=== PATIENT | male | born 1940 | race Caucasian/White ===

== ENCOUNTER 2018-02-22 14:58 | Inpatient (IN) | payer MEDICARE, BC ==
[2018-02-22] MEDS ORDERED: SODIUM CHLORIDE 0.9% 1,000 ML IV STA (15:25)
[2018-02-22 16:06] LABS: Anisocytosis Slight; Basophils # (A) 0.1 k/uL (0-0.2); Basophils % (A) 0 %; Eosinophils # (A) 0.1 k/uL (0-0.7); Eosinophils % (A) 1 %; HCT 32.4 % (39.0-53.0); HGB 10.8 gm/dL (13.0-17.5); Lymphocytes # (A) 1.2 k/uL (1.0-4.8); Lymphocytes % (A) 9 %; MCH 33.3 pg (25.0-35.0); MCHC 33.5 g/dL (31.0-37.0); MCV 99.4 fL (80.0-100.0); Macrocytosis Slight; Mean Platelet Volume 7.6; Monocytes # (A) 0.8 k/uL (0-1.0); Monocytes % (A) 7 %; Neutrophils # (A) 9.9 k/uL (1.3-7.7); Neutrophils % (A) 80 %; Platelet Count 501 k/uL (150-450); RBC 3.26 m/uL (4.30-5.90); RDW 17.1 % (11.5-15.5); WBC 12.3 k/uL (3.8-10.6)
--- NOTE | 2018-02-22 16:13 | ED ---
General Adult HPI - General Chief complaint: Wound/Laceration Stated complaint: foot infection Time Seen by Provider: 02/22/18 15:13 Source: patient, RN notes reviewed Mode of arrival: wheelchair Limitations: no limitations - History of Present Illness Initial comments: Patient 77-year-old male presents emergency room today with a chief complaint of increased infection to the left great toe. Patient does admit that symptoms started approximately 3 months ago. He does admit that he had an ingrown cocktail toenail. Patient states that he was seen by the family doctor started on antibiotics recently. States his clindamycin. Patient does admit that he was trying to pull out a piece of the toenail yesterday and believes that it is somewhat worse. He states that has opened up more. Does admit that he does not experience any pain locally to the area. He denies any other complaints or symptoms. Patient denies any recent fever, chills, shortness of breath, chest pain, back pain, abdominal pain, nausea or vomiting, headaches or visual changes , or any other complaints. - Related Data Home Medications Medication Instructions Recorded Confirmed Aspirin EC [Ecotrin] 81 mg PO DAILY 08/14/15 02/22/18 Atorvastatin Calcium [Lipitor] 10 mg PO HS 08/14/15 02/22/18 Carvedilol [Coreg] 3.125 mg PO BID 08/14/15 02/22/18 Clopidogrel [Plavix] 75 mg PO DAILY 08/14/15 02/22/18 Gabapentin [Neurontin] 300 mg PO TID 08/14/15 02/22/18 Ibuprofen [Motrin] 800 mg PO Q8H PRN 08/14/15 02/22/18 Isosorbide Mononitrate ER [Imdur] 30 mg PO DAILY 08/14/15 02/22/18 Nitroglycerin Sl Tabs [Nitrostat] 0.4 mg SUBLINGUAL Q5M PRN 08/14/15 02/22/18 HYDROcodone/APAP 10-325MG [[place] 1 tab PO TID PRN 02/22/18 02/22/18 10-325] Mirtazapine [Remeron (Soluspan)] 30 mg PO HS 02/22/18 02/22/18 Nystatin 100,000Unit/gm Cream 1 applic TOPICAL BID PRN 02/22/18 02/22/18 [Mycostatin Cream] Sulfamethox-Tmp 800-160Mg [Bactrim 1 tab PO BID 02/22/18 02/22/18 DS 800-160 mg] Tolterodine ER [Detrol LA] 4 mg PO BID 02/22/18 02/22/18 Umeclidinium Brm/Vilanterol Tr 1 puff INHALATION RT-DAILY 02/22/18 02/22/18 [Anoro Ellipta 62.5-25 Mcg INH] Allergies Allergy/AdvReac Type Severity Reaction Status Date / Time Penicillins Allergy Unknown Verified 02/22/18 15:23 Artificial Cinnamon Allergy Unknown Uncoded 02/22/18 15:09 Review of Systems ROS Statement: Those systems with pertinent positive or pertinent negative responses have been documented in the HPI. ROS Other: All systems not noted in ROS Statement are negative. Past Medical History Past Medical History: Coronary Artery Disease (CAD), COPD, CVA/TIA, Hyperlipidemia, Hypertension, Myocardial Infarction ([place]) Additional Past Medical History / Comment(s): MITRAL VALVE PROLAPSE, SPINAL STENOSIS History of Any Multi-Drug Resistant Organisms: MRSA Date of last positivie culture/infection: 2017 MDRO Source:: BACK Past Surgical History: Coronary Bypass/CABG, Heart Catheterization With Stent Additional Past Surgical History / Comment(s): CAROTID ENDARTERECTOMY, DOUBLE BYPASS, LAMINECTOMY. 5 STENTS, CEVERVICAL LAMINECTOMY Past Psychological History: No Psychological Hx Reported Smoking Status: Current every day smoker Past Alcohol Use History: Occasional Past Drug Use History: None Reported General Exam - General Exam Comments Initial Comments: General: The patient is awake and alert, in no distress, and does not appear acutely ill. Eye: There is normal conjunctiva bilaterally. No signs of icterus. Ears, nose, mouth and throat: There are moist mucous membranes and no oral lesions. Neck: The neck is supple. Cardiovascular: There is a regular rate and rhythm. No murmur, rub or gallop is appreciated. Respiratory: Lungs are clear to auscultation, respirations are non-labored, breath sounds are equal. No wheezes, stridor, rales, or rhonchi. Musculoskeletal: Normal ROM, no tenderness. Sensation intact. Strength 5/5. Pulses equal bilaterally 2+. Neurological: A&O x 3. CN II-XII intact, There are no obvious motor or sensory deficits. Coordination appears grossly intact. Speech is normal. Skin: Patient does have increased redness erythema there is lethargic streaking up the right foot just past the right ankle. There is a black dark spot at the tip of the left great toe. There is open to the lateral wound. No drainage. Psychiatric: Cooperative, appropriate mood & affect, normal judgment. Limitations: no limitations Course Vital Signs 02/22/18 15:04 Temperature 98.2 F Pulse Rate 73 Respiratory 18 Rate Blood Pressure 145/82 O2 Sat by Pulse 93 L Oximetry Medical Decision Making - Medical Decision Making Patient's labs reviewed and showed 12,000 white count. Patient's x-ray does show evidence for possible osteomyelitis of the first digit of the left foot. Patient be admitted. He started on Rocephin and vancomycin here in the emergency room. - Lab Data Result diagrams: 02/22/18 15:49 02/22/18 15:49 Lab Results 02/22/18 02/22/18 02/22/18 Range/Units 15:49 15:49 15:49 WBC 12.3 H (3.8-10.6) k/uL RBC 3.26 L (4.30-5.90) m/uL Hgb 10.8 L (13.0-17.5) gm/dL Hct 32.4 L (39.0-53.0) % MCV 99.4 (80.0-100.0) fL MCH 33.3 (25.0-35.0) pg MCHC 33.5 (31.0-37.0) g/dL RDW 17.1 H (11.5-15.5) % Plt Count 501 H (150-450) k/uL Neutrophils % 80 % Lymphocytes % 9 % Monocytes % 7 % Eosinophils % 1 % Basophils % 0 % Neutrophils # 9.9 H (1.3-7.7) k/uL Lymphocytes # 1.2 (1.0-4.8) k/uL Monocytes # 0.8 (0-1.0) k/uL Eosinophils # 0.1 (0-0.7) k/uL Basophils # 0.1 (0-0.2) k/uL Anisocytosis Slight Macrocytosis Slight PT (9.0-12.0) sec INR (<1.2) APTT (22.0-30.0) sec Sodium 137 (137-145) mmol/L Potassium 4.3 (3.5-5.1) mmol/L Chloride 104 (98-107) mmol/L Carbon Dioxide 23 (22-30) mmol/L Anion Gap 10 mmol/L BUN 21 H (9-20) mg/dL Creatinine 1.37 H (0.66-1.25) mg/dL Est GFR (CKD-EPI)AfAm 56 (>60 ml/min/1.73 sqM) Est GFR (CKD-EPI)NonAf 49 (>60 ml/min/1.73 sqM) Glucose 104 H (74-99) mg/dL Plasma Lactic Acid Fidel 1.2 (0.7-2.0) mmol/L Calcium 9.2 (8.4-10.2) mg/dL Total Bilirubin 0.6 (0.2-1.3) mg/dL AST 20 (17-59) U/L ALT 22 (21-72) U/L Alkaline Phosphatase 67 (38-126) U/L Total Protein 7.1 (6.3-8.2) g/dL Albumin 3.4 L (3.5-5.0) g/dL 02/22/18 Range/Units 15:49 WBC (3.8-10.6) k/uL RBC (4.30-5.90) m/uL Hgb (13.0-17.5) gm/dL Hct (39.0-53.0) % MCV (80.0-100.0) fL MCH (25.0-35.0) pg MCHC (31.0-37.0) g/dL RDW (11.5-15.5) % Plt Count (150-450) k/uL Neutrophils % % Lymphocytes % % Monocytes % % Eosinophils % % Basophils % % Neutrophils # (1.3-7.7) k/uL Lymphocytes # (1.0-4.8) k/uL Monocytes # (0-1.0) k/uL Eosinophils # (0-0.7) k/uL Basophils # (0-0.2) k/uL Anisocytosis Macrocytosis PT 11.3 (9.0-12.0) sec INR 1.2 H (<1.2) APTT 27.2 (22.0-30.0) sec Sodium (137-145) mmol/L Potassium (3.5-5.1) mmol/L Chloride (98-107) mmol/L Carbon Dioxide (22-30) mmol/L Anion Gap mmol/L BUN (9-20) mg/dL Creatinine (0.66-1.25) mg/dL Est GFR (CKD-EPI)AfAm (>60 ml/min/1.73 sqM) Est GFR (CKD-EPI)NonAf (>60 ml/min/1.73 sqM) Glucose (74-99) mg/dL Plasma Lactic Acid Fidel (0.7-2.0) mmol/L Calcium (8.4-10.2) mg/dL Total Bilirubin (0.2-1.3) mg/dL AST (17-59) U/L ALT (21-72) U/L Alkaline Phosphatase (38-126) U/L Total Protein (6.3-8.2) g/dL Albumin (3.5-5.0) g/dL Disposition Clinical Impression: Osteomyelitis, Cellulitis Disposition: ADMITTED IP TO THIS HOSP Condition: Good Is patient prescribed a controlled substance at d/c from ED?: No Referrals: Bhupinder Blankenship DO [Primary Care Provider] - 1-2 days Time of Disposition: 16:31
[2018-02-22 16:18] LABS: Albumin 3.4 g/dL (3.5-5.0); Calcium 9.2 mg/dL (8.4-10.2); Potassium 4.3 mmol/L (3.5-5.1); Total Bilirubin 0.6 mg/dL (0.2-1.3); Total Protein 7.1 g/dL (6.3-8.2)
[2018-02-22 16:19] LABS: INR 1.2 (<1.2); Partial Thromboplastin Time 27.2 sec (22.0-30.0); Prothrombin Time 11.3 sec (9.0-12.0)
--- NOTE | 2018-02-22 16:23 | XR ---
EXAMINATION TYPE: XR foot complete LT DATE OF EXAM: 02/22/2018 CLINICAL HISTORY: Chronic nonhealing wound of the left great toe. TECHNIQUE: Frontal, lateral, and oblique images of the left foot are obtained. COMPARISON: None FINDINGS: There is progressive osteolysis of the distal phalanx of the left first digit with extent i nto the metatarsophalangeal joint space and new osteolysis of the distal second digit phalanx. Puncta te sclerotic focus medial to the midshaft of the first metatarsal could relate to sequela prior traum a. Degenerative changes of the first metatarsophalangeal joint and distal interphalangeal joints are mild. No acute fracture or dislocation. Small plantar enthesophytes. Small vessel atherosclerosis of the posterior tibial artery and dorsalis pedis artery. IMPRESSION: Progressive osteolysis of the distal phalanx of the left first digit with extent into the joint space in the ostial lysis of the distal phalanx of the second digit concerning for sequela of osteomyelitis. Three-phase bone scan could be performed for further evaluation.
[2018-02-22] MEDS ORDERED: cefTRIAXone 2,000 MG in SODIUM CHLORIDE 0.9% 100 ML IVPB STA (16:29)
[2018-02-22] MEDS ORDERED: VANCOMYCIN IV PER PHARMACY 1 EACH MISC MISCELLANE PRN (16:30)
[2018-02-22] MEDS ORDERED: NALOXONE 0.4 MG/ML 1 ML VIAL IV PRN (16:32)
[2018-02-22] MEDS ORDERED: SODIUM CHLORIDE 0.9% 1,000 ML IV ONE (16:32)
[2018-02-22] MEDS ORDERED: ONDANSETRON 4 MG/2 ML VIAL IVP PRN (16:32)
[2018-02-22] MEDS ORDERED: ACETAMINOPHEN TAB 325 MG TAB PO PRN (16:32)
[2018-02-22] MEDS ORDERED: VANCOMYCIN 1,500 MG in SODIUM CHLORIDE 0.9% 250 ML IVPB STA (16:39)
[2018-02-22 17:01] LABS: Appearance,Urine Clear (Clear); Bilirubin,Urine Negative (Negative); Blood,Urine Negative (Negative); Color,Urine Yellow; Glucose,Urine (UA) Negative (Negative); Ketones,Urine Negative (Negative); Leukocyte Esterase,Urine Negative (Negative); Nitrite,Urine Negative (Negative); PH, Urine 6.5 (5.0-8.0); Protein,Urine Negative (Negative); Specific Gravity,Urine 1.006 (1.001-1.035); Urobilinogen,Urine <2.0 mg/dL (<2.0)
[2018-02-22] MEDS ORDERED: NITROGLYCERIN SL TABS 0.4 MG TAB SUBLINGUAL PRN (18:31)
[2018-02-22] MEDS ORDERED: IBUPROFEN 800 MG TAB PO PRN (18:31)
[2018-02-22] MEDS: GABAPENTIN 300 MG CAP PO SCH (22:02)
[2018-02-22] MEDS: OXYBUTYNIN 10 MG TAB.ER.24 PO SCH (22:03)
[2018-02-22] MEDS: ATORVASTATIN 10 MG TAB PO SCH (22:03)
[2018-02-22] MEDS: MIRTAZAPINE 30 MG PO SCH (22:06)
[2018-02-23] MEDS ORDERED: ALPRAZolam 0.25 MG TAB PO PRN (00:57)
[2018-02-23] MEDS ORDERED: TEMAZEPAM 15 MG CAP PO PRN (00:57)
[2018-02-23] MEDS: ceFAZolin IN SWFI 2 GM/20 ML SYRINGE IVP SCH ×3 (01:34→16:49)
[2018-02-23] MEDS ORDERED: VANCOMYCIN 1,500 MG in SODIUM CHLORIDE 0.9% 250 ML IVPB SCH (06:00)
[2018-02-23] MEDS: CARVEDILOL 3.125 MG TAB PO SCH ×2 (08:17→16:50)
[2018-02-23] MEDS: NICOTINE 14MG/24HR PATCH TRANSDERM SCH (08:17)
[2018-02-23] MEDS: PANTOPRAZOLE 40 MG TABLET PO SCH (08:17)
[2018-02-23] MEDS: ISOSORBIDE MONONITRATE ER 30 MG TAB.ER.24H PO SCH (08:17)
[2018-02-23] MEDS: OXYBUTYNIN 10 MG TAB.ER.24 PO SCH ×2 (08:17→21:02)
[2018-02-23] MEDS: GABAPENTIN 300 MG CAP PO SCH ×3 (08:17→21:02)
[2018-02-23] MEDS: HEPARIN SODIUM,PORCINE 5,000 UNIT/ML 1 ML VIAL SQ SCH ×2 (08:18→21:03)
[2018-02-23] MEDS: IPRATROPIUM 0.5 MG/2.5 ML NEBU INHALATION SCH ×4 (08:19→20:01)
[2018-02-23] MEDS: HYDROcodone/APAP 10-325MG 1 EACH TAB PO PRN ×2 (08:21→16:53)
[2018-02-23] MEDS ORDERED: cefTRIAXone 2,000 MG in SODIUM CHLORIDE 0.9% 100 ML IVPB SCH (09:00)
--- NOTE | 2018-02-23 09:36 | HP ---
HISTORY AND PHYSICAL DATE OF SERVICE: 02/22/2018 CHIEF COMPLAINTS: Left toe wound. HISTORY OF PRESENT ILLNESS: This is a 77-year-old gentleman with past medical history of CAD, COPD, CVA, TIA , hypertension, myocardial infarction being followed by Dr. colon carrying a callus on the left great toe and about 3 months ago patient had ingrown toenail also. The patient was started on antibiotic recently. Clindamycin collaterally improving the increased swelling and then patient came to [facility], admitted for further evaluation and treatment. There is no history of fever, rigors or chills. No history of headache, loss of consciousness. There is some infection in the third toe on the left foot, also. The evaluation of the foot x-ray showed possible proximal osteolysis and osteomyelitis. PAST MEDICAL HISTORY: History of CAD, COPD, CVA, TIA, hypertension, history of myocardial infarction, history of mitral valve prolapse, history of CAD, CABG and stent. MEDICATIONS: Home medications are: 1. Ellipta 1 puff daily. 2. Detrol LA 4 mg p.o. b.i.d. 3. Bactrim 1 p.o. b.i.d. 4. Mycostatin 1 application b.i.d. p.r.n. 5. Nitrostat 0.4 mg sublingual p.r.n. 7. Imdur 30 mg p.o. daily.. 8. Motrin 800 mg q.8 p.r.n. 9. [place] 10 mg t.i.d. p.r.n. 10.Neurontin 300 mg p.o. t.i.d. 11.Plavix 10 mg. 12.Coreg 3.125 mg p.o. b.i.d. 13.Lipitor 10 mg p.o. daily. 14.Ecotrin 81 mg p.o. daily. ALLERGIES: PENICILLIN, CINNAMON. FAMILY HISTORY: No history of heart disease or strokes. SOCIAL HISTORY: History of smoking. No alcohol intake. REVIEW OF SYSTEMS: ENT: No diminished vision. CARDIOVASCULAR SYSTEM: No angina. RESPIRATORY SYSTEM: No cough noted. GI: No nausea. : No dysuria. NERVOUS SYSTEM: As mentioned earlier. ALLERGY/IMMUNOLOGY: As mentioned earlier. HEMATOLOGY: No history of anemia. CONSTITUTIONAL: Negative. DERMATOLOGY: Negative. RHEUMATOLOGY: Negative. PSYCHIATRY: As mentioned earlier. MUSCULOSKELETAL: As mentioned earlier. ENDOCRINE: No history of diabetes hypothyroidism. CONSTITUTIONAL: As mentioned earlier. PHYSICAL EXAMINATION: Alert, oriented x3, blood pressure 130/62, respiration 18, temperature 98.1, pulse ox 94% on room air. HEENT: Conjunctivae normal, oral mucosa moist. Neck is no jugular venous distention. No lymph node enlargement. CARDIOVASCULAR SYSTEMS: S1, S2, muffled. RESPIRATORY: Breath sounds diminished at the bases, no rhonchi, no crackles. ABDOMEN: Soft, nontender. No mass palpable. LEGS: The left foot has significant pain and swelling of the left big toe present. The third toe infection also present, tender and pulses felt normally. NERVOUS SYSTEM: Higher functions as mentioned earlier. Moves all four limbs. No focal deficits. SKIN: No ulcer, rash, bleeding. LABS: WBC is 12.3, hemoglobin 10.8, creatinine 1.36. ASSESSMENT: 1. Left big toe infection with osteomyelitis with possible sepsis. 2. Increased WBC. 3. Anemia. 4. Increased creatinine with chronic kidney disease, stage III. 5. Chronic obstructive pulmonary disease. 6. Cerebrovascular accident, transient ischemic attack. 7. Hypertension. 8. Hyperlipidemia. 9. History of myocardial infarction. 10.History of coronary artery disease. 11.History of mitral valve prolapses. 12.History of spinal stenosis. 13.History of methicillin-resistant Staphylococcus aureus. 14.History of coronary artery disease, coronary artery bypass grafting with stent. 15.History of carotid endarterectomy. RECOMMENDATION: In this 77-year-old gentleman who presented with multiple complications medical issues, will monitor the patient closely. Continue with the current management and symptomatic treatment. Will initiate a broad-spectrum IV antibiotic, obtain cultures and will also obtain vascular infectious disease evaluation. Continue the rest of medications. Avoid nephrotoxic medications and guarded prognosis because of multiple complex medical issues. Further recommendations to follow. Also, obtain a Cardiology evaluation as well. Guarded prognosis. MMODL / IJN: [id number] / ZULY
[2018-02-23 10:16] LABS: Albumin 2.8 g/dL (3.5-5.0); Calcium 8.5 mg/dL (8.4-10.2); Potassium 4.8 mmol/L (3.5-5.1); Total Bilirubin 0.4 mg/dL (0.2-1.3); Total Protein 6.1 g/dL (6.3-8.2)
[2018-02-23 10:36] LABS: Anisocytosis Slight; Basophils # (A) 0.1 k/uL (0-0.2); Basophils % (A) 1 %; Eosinophils # (A) 0.4 k/uL (0-0.7); Eosinophils % (A) 5 %; HCT 32.4 % (39.0-53.0); HGB 10.4 gm/dL (13.0-17.5); Hypochromasia Slight; Lymphocytes # (A) 0.5 k/uL (1.0-4.8); Lymphocytes % (A) 6 %; Macrocytosis Moderate; Monocytes # (A) 0.6 k/uL (0-1.0); Monocytes % (A) 6 %; Neutrophils % (A) 81 %; Platelet Count 470 k/uL (150-450); RBC 3.14 m/uL (4.30-5.90); WBC 8.7 k/uL (3.8-10.6)
[2018-02-23 11:20] VITALS: BMI 26.4
--- NOTE | 2018-02-23 11:29 | P.CRDCN ---
History of Present Illness History of present illness: Mr. Watts is a pleasant 77-year-old male past medical history significant for coronary artery disease s/p stent [address] Yoo in [place] and 2-vessel bypass surgery, hypertension, dyslipidemia, mitral valve prolapse, CVA and daily nicotine dependence. We have been asked to see him in consultation secondary to history of CAD. He presented to the hospital with an infection of the left great toe that has been getting progressively worse over the past 3 months. He is receiving IV antibiotics and awaiting a infectious disease, vascular and orthopedic consultation. He is seen and examined resting comfortably in bed in no acute distress. He denies symptoms of chest pain, shortness of breath, dizziness or palpitations. 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 No EKG obtained for review. Current cardiac medications include Imdur 30 mg daily, Plavix 75 mg daily, carvedilol 3.125 mg twice a day, atorvastatin 10 mg daily and aspirin 81 mg daily. He also takes Detrol, Motrin, [place] and Neurontin. Laboratory data reviewed, WBC 12.3, hemoglobin 10.8, sodium 137, potassium 4.3, creatinine 1.37 , GFR 46. Review of Systems At the time of my exam: CONSTITUTIONAL: Denies fever. Denies chills. EYES: Denies blurred vision. Denies vision changes. Denies eye pain. EARS, NOSE, MOUTH & THROAT: Denies headache. Denies sore throat. Denies ear pain. CARDIOVASCULAR: Denies chest pain. Denies shortness of breath. Denies orthopnea. Denies PND. Denies palpitations. RESPIRATORY: Denies cough. GASTROINTESTINAL: Denies abdominal pain. Denies diarrhea. Denies constipation. Denies nausea. Denies vomiting. MUSCULOSKELETAL: Denies myalgias. INTEGUMENTARY: Denies pruitis. Denies rash. NEUROLOGIC: Denies numbness. Denies tingling. Denies weakness. PSYCHIATRIC: Denies anxiety. Denies depression. ENDOCRINE: Denies fatigue. Denies weight change. Denies polydipsia. Denies polyurina. GENITOURINARY: Denies burning, hematuria or urgency with micturation. HEMATOLOGIC: Denies history of anemia. Denies bleeding. Past Medical History Past Medical History: Coronary Artery Disease (CAD), COPD, CVA/TIA, Hyperlipidemia, Hypertension, Myocardial Infarction ([place]) Additional Past Medical History / Comment(s): MITRAL VALVE PROLAPSE, SPINAL STENOSIS History of Any Multi-Drug Resistant Organisms: MRSA Date of last positivie culture/infection: 2017 MDRO Source:: BACK Past Surgical History: Coronary Bypass/CABG, Heart Catheterization With Stent Additional Past Surgical History / Comment(s): CAROTID ENDARTERECTOMY, DOUBLE BYPASS, LAMINECTOMY. 5 STENTS, CEVERVICAL LAMINECTOMY Past Psychological History: No Psychological Hx Reported Smoking Status: Current every day smoker Past Alcohol Use History: Occasional Past Drug Use History: None Reported Medications and Allergies Home Medications Medication Instructions Recorded Confirmed Type Aspirin EC [Ecotrin] 81 mg PO DAILY 08/14/15 02/22/18 History Atorvastatin Calcium [Lipitor] 10 mg PO HS 08/14/15 02/22/18 History Carvedilol [Coreg] 3.125 mg PO BID 08/14/15 02/22/18 History Clopidogrel [Plavix] 75 mg PO DAILY 08/14/15 02/22/18 History Gabapentin [Neurontin] 300 mg PO TID 08/14/15 02/22/18 History Ibuprofen [Motrin] 800 mg PO Q8H PRN 08/14/15 02/22/18 History Isosorbide Mononitrate ER [Imdur] 30 mg PO DAILY 08/14/15 02/22/18 History Nitroglycerin Sl Tabs [Nitrostat] 0.4 mg SUBLINGUAL Q5M PRN 08/14/15 02/22/18 History HYDROcodone/APAP 10-325MG [[place] 1 tab PO TID PRN 02/22/18 02/22/18 History 10-325] Mirtazapine [Remeron (Soluspan)] 30 mg PO HS 02/22/18 02/22/18 History Nystatin 100,000Unit/gm Cream 1 applic TOPICAL BID PRN 02/22/18 02/22/18 History [Mycostatin Cream] Sulfamethox-Tmp 800-160Mg [Bactrim 1 tab PO BID 02/22/18 02/22/18 History DS 800-160 mg] Tolterodine ER [Detrol LA] 4 mg PO BID 02/22/18 02/22/18 History Umeclidinium Brm/Vilanterol Tr 1 puff INHALATION RT-DAILY 02/22/18 02/22/18 History [Anoro Ellipta 62.5-25 Mcg INH] Allergies Allergy/AdvReac Type Severity Reaction Status Date / Time Penicillins Allergy Unknown Verified 02/22/18 15:23 Artificial Cinnamon Allergy Unknown Uncoded 02/22/18 15:09 Physical Exam Vitals: Vital Signs Temp Pulse Pulse Resp BP BP Pulse Ox 02/23/18 08:33 84 02/23/18 08:22 86 02/23/18 07:00 98.6 F 89 18 119/64 96 02/22/18 23:00 98.1 F 90 18 136/62 95 02/22/18 17:40 98.2 F 86 16 144/72 94 L 02/22/18 17:02 80 18 114/58 96 02/22/18 15:04 98.2 F 73 18 145/82 93 L Intake and Output 02/22/18 02/23/18 02/23/18 22:59 06:59 14:59 Intake Total 250 200 Output Total 200 500 Balance 50 -300 Intake: Intake, IV Titration 250 Amount Vancomycin 1,500 mg In 250 Sodium Chloride 0.9% 250 ml @ 125 mls/hr IVPB ONCE STA Rx#:[id number] Oral 200 Output: Urine 200 500 Other: # Bowel Movements 0 0 Weight 90.718 kg Blood pressure 119/64 heart rate 89 afebrile maintaining oxygen saturation on room air GENERAL: This is a 77-year-old male in no apparent distress at the time of my examination. HEENT: Head is atraumatic, normocephalic. Pupils are equal, round. Sclerae anicteric. Conjunctivae are clear. Mucous membranes of the mouth are moist. Neck is supple. There is no jugular venous distention. No carotid bruit is heard. LUNGS: Clear to auscultation no wheezes, rales or rhonchi. No chest wall tenderness is noted on palpation or with deep breathing. HEART: Regular rate and rhythm without murmurs, rubs or gallops. S1 and S2 heard. ABDOMEN: Soft, nontender. Bowel sounds are heard. No organomegaly noted. EXTREMITIES: No evidence of peripheral edema and no calf tenderness noted. VASCULAR: Radial and dorsalis pedis pulses palpated, no evidence of clubbing. NEUROLOGIC: Patient is awake, alert and oriented x3. Results 02/23/18 09:40 10/12/18 09:40 Cardiac Enzymes 02/22/18 Range/Units 15:49 AST 20 (17-59) U/L Coagulation 02/22/18 Range/Units 15:49 PT 11.3 (9.0-12.0) sec APTT 27.2 (22.0-30.0) sec CBC 02/22/18 Range/Units 15:49 WBC 12.3 H (3.8-10.6) k/uL RBC 3.26 L (4.30-5.90) m/uL Hgb 10.8 L (13.0-17.5) gm/dL Hct 32.4 L (39.0-53.0) % Plt Count 501 H (150-450) k/uL Comprehensive Metabolic Panel 02/22/18 Range/Units 15:49 Sodium 137 (137-145) mmol/L Potassium 4.3 (3.5-5.1) mmol/L Chloride 104 (98-107) mmol/L Carbon Dioxide 23 (22-30) mmol/L BUN 21 H (9-20) mg/dL Creatinine 1.37 H (0.66-1.25) mg/dL Glucose 104 H (74-99) mg/dL Calcium 9.2 (8.4-10.2) mg/dL AST 20 (17-59) U/L ALT 22 (21-72) U/L Alkaline Phosphatase 67 (38-126) U/L Total Protein 7.1 (6.3-8.2) g/dL Albumin 3.4 L (3.5-5.0) g/dL Current Medications Generic Name Dose Route Start Last Admin Trade Name Freq PRN Reason Stop Dose Admin Acetaminophen 650 mg 02/22/18 16:32 Tylenol Tab PO Q6HR PRN Mild Pain or Fever > 100.5 Hydrocodone Bitart/Acetaminophen 1 each 02/22/18 18:31 02/23/18 08:21 [place] 10 PO 1 each TID PRN Administration MODERATE Pain Alprazolam 0.25 mg 02/23/18 00:57 Xanax PO TID PRN Anxiety Atorvastatin Calcium 10 mg 02/22/18 21:00 02/22/18 22:03 Lipitor PO 10 mg HS JARRETT Administration Carvedilol 3.125 mg 02/23/18 07:30 02/23/18 08:17 Coreg PO 3.125 mg BID-W/MEALS [facility] Administration Cefazolin Sodium 2 gm 02/23/18 00:45 02/23/18 08:16 Kefzol IVP 2 gm Q8HR [facility] Administration Gabapentin 300 mg 02/22/18 22:00 02/23/18 08:17 Neurontin PO 300 mg TID [facility] Administration Heparin Sodium (Porcine) 5,000 unit 02/23/18 09:00 02/23/18 08:18 Heparin SQ Not Given Q12HR [facility] Ibuprofen 800 mg 02/22/18 18:31 Motrin PO Q8H PRN MILD Pain Ipratropium [place] 0.5 mg 02/23/18 08:00 02/23/18 08:19 Atrovent Nebulized INHALATION 0.5 mg RT-QID [facility] Administration Isosorbide Mononitrate 30 mg 02/23/18 09:00 02/23/18 08:17 Imdur PO 30 mg DAILY [facility] Administration Morphine Sulfate 4 mg 02/22/18 16:32 Morphine Sulfate (Inj) IV Q4HR PRN Severe Pain Naloxone HCl 0.2 mg 02/22/18 16:32 Narcan IV Q2M PRN Opioid Reversal Nicotine 1 patch 02/23/18 09:00 02/23/18 08:17 Habitrol 14mg/24hr Patch TRANSDERM 1 patch DAILY [facility] Administration Nitroglycerin 0.4 mg 02/22/18 18:31 Nitrostat SUBLINGUAL Q5M PRN Chest Pain Non-Formulary Medication 30 mg 02/22/18 21:00 02/22/18 22:06 Mirtazapine [Remeron (Soluspan)] PO Not Given HS [facility] Nystatin 1 applic 02/23/18 00:56 Mycostatin Cream TOPICAL BID PRN Skin Irritation Ondansetron HCl 4 mg 02/22/18 16:32 Zofran IVP Q8HR PRN Nausea And Vomiting Oxybutynin Chloride 10 mg 02/22/18 21:00 02/23/18 08:17 Ditropan Xl PO 10 mg BID [facility] Administration Pantoprazole Sodium 40 mg 02/23/18 07:30 02/23/18 08:17 Protonix PO 40 mg [id number] [facility] Administration Temazepam 15 mg 02/23/18 00:57 Restoril PO HS PRN Insomnia Intake and Output 02/22/18 02/23/18 02/23/18 22:59 06:59 14:59 Intake Total 250 200 Output Total 200 500 Balance 50 -300 Intake: Intake, IV Titration 250 Amount Vancomycin 1,500 mg In 250 Sodium Chloride 0.9% 250 ml @ 125 mls/hr IVPB ONCE STA Rx#:[id number] Oral 200 Output: Urine 200 500 Other: # Bowel Movements 0 0 Weight 90.718 kg 02/22/18 15:49 02/22/18 15:49 Assessment and Plan Assessment: ASSESSMENT Left great toe infection Leukocytosis Chronic kidney disease Hypertension Dyslipidemia History of coronary artery disease s/p bypass grafting PLAN Obtain 2D echocardiogram and doppler study to assess cardiac structure and function. Continue imdur, carvedilol and atorvastatin. Aspirin and plavix can be held in case of debridement required. Resume as soon as possible. Ongoing medical management. We will follows as needed. Thank you kindly for this consultation. Nurse Practitioner note has been reviewed, I agree with a documented findings and plan of care. Patient was seen and examined.
--- NOTE | 2018-02-23 11:32 | ECHOF ---
Referral Reason:cad MEASUREMENTS -------- HEIGHT: 180.3 cm WEIGHT: 90.7 kg BP: RVIDd: 2.8 cm (< 3.3) IVSd: 0.8 cm (0.6 - 1.1) LVIDd: 5.6 cm (3.9 - 5.3) LVPWd: 1.1 cm (0.6 - 1.1) IVSs: 1.4 cm LVIDs: 4.5 cm LVPWs: 1.1 cm Ao Diam: 3.6 cm (2.0 - 3.7) AV Cusp: 2.3 cm (1.5 - 2.6) LA Diam: 3.3 cm (2.7 - 3.8) MV EXCURSION: 17.354 mm (> 18.000) MV EF SLOPE: 85 mm/s (70 - 150) EPSS: 1.2 cm MV E Ashwin: 0.82 m/s MV DecT: 265 ms MV A Ashwin: 1.17 m/s MV E/A Ratio: 0.71 RAP: 5.00 mmHg RVSP: 34.50 mmHg FINDINGS -------- Sinus rhythm. This was a technically difficult study with suboptimal views. The left ventricular size is normal. Left ventricular wall thickness is normal. Overall left vent ricular systolic function is mild-moderately impaired with, an EF between 40 - 45 %. Inferiorlatera l Hypokinesis The right ventricle is normal in size and function. The left atrium is normal in size. The right atrium was not well visualized. Lumason used Aortic valve is trileaflet and is mildly thickened. The mitral valve leaflets are mildly thickened. Mild mitral regurgitation is present. Mild tricuspid regurgitation present. The right ventricular systolic pressure, as measured by Doppl er, is 34.50mmHg. Pulmonic valve appears structurally normal. The aortic root size is normal. The pericardium is normal. CONCLUSIONS -------- 1. Sinus rhythm. 2. This was a technically difficult study with suboptimal views. 3. The left ventricular size is normal. 4. Left ventricular wall thickness is normal. 5. Inferiorlateral Hypokinesis 6. The right ventricle is normal in size and function. 7. The left atrium is normal in size. 8. The right atrium was not well visualized. 9. Lumason used 10. Aortic valve is trileaflet and is mildly thickened. 11. The mitral valve leaflets are mildly thickened. 12. Mild mitral regurgitation is present. 13. Mild tricuspid regurgitation present. 14. The right ventricular systolic pressure, as measured by Doppler, is 34.50mmHg. 15. Pulmonic valve appears structurally normal. 16. The aortic root size is normal. 17. The pericardium is normal. TERRITORY SALES REPRESENTATIVE: Karol Herbert RDCS
[2018-02-23 11:38] LABS: Poikilocytosis (M) Present
[2018-02-23] MEDS: SODIUM CHLORIDE 0.9% 1,000 ML IV SCH (12:56)
--- NOTE | 2018-02-23 20:12 | CONS ---
CONSULTATION Mr. Dominguez Watts came to the hospital with infected gangrene left foot big toe. The patient had this for the last 2 months. According to the patient, he himself removed the nail and callus from the from his big toe with open wound. He has been admitted and I was consulted. The patient had a x-ray of the foot which showed possible osteomyelitis. The patient has wet gangrene of the big toe and there is gangrene changes of the left foot big toe noted. The big toe is cold and no flow noted. MEDICAL HISTORY: Includes history of coronary artery disease, COPD, history of hypertension, history of myocardial infarction, history of mitral valve prolapse and history of stent also. The patient was seen by Infectious Disease for IV antibiotic. ALLERGIES: ALLERGY to PENICILLIN. SOCIAL HISTORY: Smoking. PHYSICAL EXAMINATION: Patient was seen in his room. NECK: Supple. Trachea central. CHEST: Clear. ABDOMEN: Soft. VASCULAR EXAM: Femorals are palpable with posterior tibial by the Doppler. Patient has a gangrene of the big toe with open wound noted and bone is exposed. PLAN: Amputation of the left foot big toe. The risks and complication of nonhealing and infection have been discussed. MMODL / IJN: [id number] /
[2018-02-23] MEDS: ATORVASTATIN 10 MG TAB PO SCH (21:02)
[2018-02-23] MEDS: MIRTAZAPINE 30 MG PO SCH (21:03)
[2018-02-24] MEDS: ceFAZolin IN SWFI 2 GM/20 ML SYRINGE IVP SCH ×2 (00:07→08:21)
[2018-02-24] MEDS: SODIUM CHLORIDE 0.9% 1,000 ML IV SCH ×2 (05:17→15:21)
[2018-02-24] MEDS: HEPARIN SODIUM,PORCINE 5,000 UNIT/ML 1 ML VIAL SQ SCH ×2 (08:17→21:10)
[2018-02-24] MEDS: PANTOPRAZOLE 40 MG TABLET PO SCH (08:17)
[2018-02-24] MEDS: OXYBUTYNIN 10 MG TAB.ER.24 PO SCH ×2 (08:20→21:10)
[2018-02-24] MEDS: GABAPENTIN 300 MG CAP PO SCH ×3 (08:21→21:09)
[2018-02-24] MEDS: NICOTINE 14MG/24HR PATCH TRANSDERM SCH (08:21)
[2018-02-24] MEDS: CARVEDILOL 3.125 MG TAB PO SCH (08:22)
[2018-02-24] MEDS: ISOSORBIDE MONONITRATE ER 30 MG TAB.ER.24H PO SCH (08:22)
[2018-02-24 08:38] LABS: Anisocytosis Slight; Basophils # (A) 0.1 k/uL (0-0.2); Basophils % (A) 1 %; Eosinophils # (A) 0.6 k/uL (0-0.7); Eosinophils % (A) 6 %; HCT 32.7 % (39.0-53.0); HGB 10.6 gm/dL (13.0-17.5); Hypochromasia Slight; Lymphocytes # (A) 0.9 k/uL (1.0-4.8); Lymphocytes % (A) 10 %; MCH 33.3 pg (25.0-35.0); MCHC 32.4 g/dL (31.0-37.0); MCV 102.5 fL (80.0-100.0); Macrocytosis Moderate; Mean Platelet Volume 7.6; Monocytes # (A) 0.7 k/uL (0-1.0); Monocytes % (A) 7 %; Neutrophils % (A) 74 %; Platelet Count 440 k/uL (150-450); RBC 3.19 m/uL (4.30-5.90); RDW 17.3 % (11.5-15.5); WBC 9.4 k/uL (3.8-10.6)
[2018-02-24 08:44] LABS: Calcium 8.8 mg/dL (8.4-10.2); Potassium 4.8 mmol/L (3.5-5.1)
--- NOTE | 2018-02-24 09:22 | CONS ---
CONSULTATION DATE OF SERVICE: 02/23/2018. REASON FOR CONSULTATION: Left great toe osteomyelitis. HISTORY OF PRESENT ILLNESS: The patient is a 77-year-old male who has currently been dealing with left big toe nonhealing wound for almost 3 months. The patient said he did have an ingrowing toenail that he tried to pull out himself. Since then, he has developed a wound to the left big toe that has not healed despite him using multiple modalities. The patient did have some dull aching pain to the left big leg with intensity about 3 to 4/10, and no radiation. The patient denies significant drainage from it. His pain is more when he walks on it. Did have some associated chills but no high-grade fever. The patient apparently has been treated in the outpatient setting with some oral clindamycin. The patient did not have any improvement. Hence, the patient presented to the [facility] ER. On arrival to the ER the patient was evaluated by the ER physician. The patient did have x-rays of the left foot which shows progressive osteolysis of distal phalanx of the left digit with extending into the joint space with concern for osteomyelitis. The patient has been afebrile since his admission to the hospital. His white count was elevated at 12.3. UA has been negative. No cultures were done. The patient has been treated with Cefazolin and Infectious Disease was consulted for further recommendation regarding antibiotic therapy. REVIEW OF SYSTEMS: CONSTITUTIONAL: Positive for weakness. No high-grade fever. EYES: No complaint. ENT: No complaint. RESPIRATORY: No complaint. CARDIOVASCULAR: No complaint. GENITOURINARY: No complaint. GASTROINTESTINAL: No complaint. MUSCULOSKELETAL: As per HPI. INTEGUMENTARY: As per HPI. PSYCHOLOGICAL: No complaint. ENDOCRINE: No complaint. NEUROLOGICAL: No complaint. PAST MEDICAL HISTORY: Significant for coronary artery disease, COPD, CVA, TIA, hyperlipidemia, hypertension, CA, mitral valve prolapse, , previous history of MRSA infection. PAST SURGICAL HISTORY: Coronary artery bypass graft, heart catheterization, resistant carotid endarterectomy, cervical laminectomy. SOCIAL HISTORY: Patient current everyday smoker. Occasionally drinks. No drug use. FAMILY HISTORY: No pertinent findings noticed. ALLERGIES: PENICILLIN. MEDICATION: Currently include the patient is on Tylenol, Sherrill, Xanax, Lipitor, Coreg capsule 2 g q.8h, Neurontin, heparin, Motrin, Imdur, morphine sulfate, Narcan, nicotine patch, , Mycostatin cream, Zofran, Ditropan XL, Protonix. EXAMINATION: Blood pressure is 120/59 with a pulse of 72. Temperature 97.9. He is 91% on room air. General description is an elderly male lying in bed in no distress. No tachypnea or accessory muscles of respiration use. HEENT: Shows pallor. No scleral icterus. Oral mucosa is dry. No pharyngeal erythema. NECK: Trachea central. No thyromegaly. LUNGS: Unlabored breathing. Clear to auscultation anteriorly. No wheeze or crackle. HEART: S1, S2. Regular rate and rhythm. ABDOMEN: Soft. No tenderness. No guarding or rigidity. EXTREMITIES: No edema feet. SKIN EXAMINATION: The left big toe is currently swollen and red. Did have deformity with ulceration. The wound is probing down to the bone. A deep culture has been obtained. NEUROLOGIC: The patient is awake, alert, oriented. Mood and affect normal. LABS: Hemoglobin is 10.8, white count 12.3 with a BUN of 21, creatinine is 1.23. Liver enzymes are normal. UA has been negative. Blood culture obtained currently pending. DIAGNOSTIC IMPRESSION/PLAN: 1. Patient with left big toe nonhealing wound with underlying osteomyelitis started with removal of the toenail by the patient himself. Subsequently has been treated in outpatient setting with oral antibiotic in the form of clindamycin with ESBL in a patient who did have history of MRSA infection likely dealing with gram-positive pathogen such as MRSA that needs to be covered. However, in view off the extensive nature of this lesion it will be hard to save his toe and may end up getting amputation of his big toe. 2. Patient who did have a penicillin allergy limits the of antibiotics. 3. Renal insufficiency. PLAN: 1. Discontinue the Cefazolin. 2. Start the patient on vancomycin pharmacy to dose with target of 15 while watching his kidney function closely. 3. Await Vascular Surgery evaluation as the patient may benefit from amputation of the same and deep cultures. 4. Culture has been obtained. That will be followed. 5. We will follow up on clinical condition and culture to further adjust medication if needed. Thank you for this consultation. Will follow this patient along with you. MMODL / IJN: [id number] /
[2018-02-24] MEDS: IPRATROPIUM 0.5 MG/2.5 ML NEBU INHALATION SCH ×4 (09:28→20:28)
[2018-02-24] MEDS ORDERED: VANCOMYCIN IV PER PHARMACY 1 EACH MISC MISCELLANE PRN (11:10)
[2018-02-24] MEDS: VANCOMYCIN 1,500 MG in SODIUM CHLORIDE 0.9% 250 ML IVPB SCH ×2 (12:57→14:50)
--- NOTE | 2018-02-24 13:46 | P.PN ---
Subjective Progress Note Date: 02/24/18 Principal diagnosis: left big toe osteomyelitis Mr. Watts is a 77-year-old male with a past medical history of coronary artery disease, COPD, CVA, hypertension, [place] coming to the hospital with a chief complaint of left great toe pain and ulcer that has been going on for past 3 months. Patient was started on clindamycin but did not show significant improvement so admitted for further management. wound cultures were obtained yesterday and patient has been started on vancomycin. Gen. patient is scheduled for a left big toe amputation by vascular surgery. Patient is comfortably lying in bed appears to be no acute distress. On review of systems- Constitutional-denies having any fevers chills or rigors Respiratory- no cough or difficulty in breathing Cardiovascular -no chest pain or palpitations GI - no abdominal pain nausea vomiting or diarrhea - no dysuria or hematuria Patient's medications have been reviewed. Objective - Vital Signs Vital signs: Vital Signs Temp 97.2 F L 02/24/18 06:08 Pulse 85 02/24/18 09:41 Resp 17 02/24/18 06:08 BP 124/59 02/24/18 06:08 Pulse Ox 97 02/24/18 06:08 Intake & Output 02/23/18 02/24/18 02/24/18 18:59 06:59 18:59 Intake Total 200 Output Total 975 1400 300 Balance -775 -1400 -300 Weight 90.7 kg 90.7 kg Intake: Oral 200 Output: Urine 975 1400 300 - Exam GENERAL EXAM GEN. APPEARANCE: alert, in no apparent distress HEAD EXAM: atraumatic, normocephalic, normal inspection EYE EXAM: normal appearance, PERRL, EOMI. Absent: scleral icterus, conjunctival injection, periorbital swelling ENT EXAM: normal exam, mucous membranes moist NECK EXAM: normal inspection. Absent: tenderness, meningismus, full ROM, lymphadenopathy RESPIRATORY EXAM: normal lung sounds bilaterally. Absent: respiratory distress , wheezes, rales, rhonchi, stridor CARDIOVASCULAR EXAM: regular rate, normal rhythm, normal heart sounds. Absent : systolic murmur, diastolic murmur, rubs, gallop, clicks GI/ABDOMINAL EXAM: soft, normal bowel sounds. Absent: distended, tenderness, guarding, rebound, rigid EXTREMITIES EXAM: Left big toe - swollen and red with deformity and ulceration. BACK EXAM: normal inspection NEUROLOGICAL EXAM: alert, oriented X3, CN II-XII intact, motor sensory deficit PSYCHIATRIC EXAM: normal affect, normal mood SKIN EXAM: warm, dry, intact, normal color. Absent: rash - Labs CBC & Chem 7: 02/24/18 08:00 02/24/18 08:00 Labs: Abnormal Lab Results - Last 24 Hours (Table) 02/23/18 02/23/18 02/24/18 Range/Units 09:40 09:40 08:00 RBC 3.14 L 3.19 L (4.30-5.90) m/uL Hgb 10.4 L 10.6 L (13.0-17.5) gm/dL Hct 32.4 L 32.7 L (39.0-53.0) % MCV 103.0 H 102.5 H (80.0-100.0) fL RDW 17.0 H 17.3 H (11.5-15.5) % Plt Count 470 H (150-450) k/uL Lymphocytes # 0.5 L 0.9 L (1.0-4.8) k/uL Chloride 108 H (98-107) mmol/L Creatinine (0.66-1.25) mg/dL AST 16 L (17-59) U/L ALT 20 L (21-72) U/L Total Protein 6.1 L (6.3-8.2) g/dL Albumin 2.8 L (3.5-5.0) g/dL 02/24/18 Range/Units 08:00 RBC (4.30-5.90) m/uL Hgb (13.0-17.5) gm/dL Hct (39.0-53.0) % MCV (80.0-100.0) fL RDW (11.5-15.5) % Plt Count (150-450) k/uL Lymphocytes # (1.0-4.8) k/uL Chloride 109 H (98-107) mmol/L Creatinine 1.26 H (0.66-1.25) mg/dL AST (17-59) U/L ALT (21-72) U/L Total Protein (6.3-8.2) g/dL Albumin (3.5-5.0) g/dL Microbiology - Last 24 Hours (Table) 02/23/18 13:15 Gram Stain - Preliminary Toe - Left First Wound Culture - Preliminary 02/23/18 13:15 Anaerobic Culture - Preliminary Toe - Left First 02/22/18 15:49 Blood Culture - Preliminary Blood No Growth after 24 hours Assessment and Plan Assessment: ASSESSMENT Left big toe osteomyelitis Acute on chronic kidney injury Chronic kidney injury stage III COPD CVA Hypertension Hyperlipidemia History of coronary artery disease History of mitral wall prolapse History of spinal stenosis History of MRSA History of carotid endarterectomy Plan: Patient was initially started on cefazolin that has been discontinued and he was started on vancomycin. Wound culture is currently pending. Patient is being taken to the OR for left big toe amputation today by vascular. Continue with the rest of his current medication regimen. Further recommendations to follow depending on the progress of the patient.
[2018-02-24] MEDS ORDERED: VANCOMYCIN 1,000 MG VIAL IVPB ONE (14:50)
[2018-02-24] MEDS ORDERED: LIDOCAINE 1% INJ 10MG/ML (20 ML MDV) SQ ONE ×2 (14:50)
[2018-02-24] MEDS ORDERED: SODIUM CHLORIDE 0.9% 1,000 ML IV ONE (14:51)
[2018-02-24] MEDS: DOCUSATE 100 MG CAP PO SCH (17:14)
[2018-02-24] MEDS: ATORVASTATIN 10 MG TAB PO SCH (21:10)
[2018-02-24] MEDS: MIRTAZAPINE 30 MG PO SCH (21:12)
--- NOTE | 2018-02-24 23:25 | PN ---
PROGRESS NOTE DATE OF SERVICE: 02/24/2018. REASON FOR FOLLOWUP: Left big toe osteomyelitis. INTERVAL HISTORY: The patient is afebrile. He was taken to the OR today and is status post left big toe amputation. Patient tolerated the procedure. The patient denies having any chest pain, shortness of breath or cough. No abdominal pain or any diarrhea. EXAMINATION: Blood pressure 125/73 with a pulse of 70, temperature 96.1, he is 95% on room air. GENERAL DESCRIPTION: An elderly male lying in bed in no distress. RESPIRATORY SYSTEM: Unlabored breathing. Clear to auscultation anteriorly. HEART: S1, S2. Regular rate and rhythm. EXTREMITIES: Left foot is currently dressed up. No obvious drainage on the dressing. LABS: Hemoglobin is 10.1, white count 9.4, BUN of 16, creatinine 1.26. Cultures currently pending. DIAGNOSTIC IMPRESSION AND PLAN: The patient with big toe osteomyelitis with chronic nonhealing wound, status post left big toe amputation. We are waiting for the culture to finalize to adjust antibiotics. Continue the vancomycin while watching his kidney function closely. Continue supportive care. MMODL / IJN: [id number] /
[2018-02-25] MEDS: MORPHINE SULFATE 4 MG/ML SYRINGE IV PRN ×4 (01:43→17:18)
[2018-02-25] MEDS: VANCOMYCIN 1,500 MG in SODIUM CHLORIDE 0.9% 250 ML IVPB SCH ×2 (04:58→22:38)
[2018-02-25] MEDS: SODIUM CHLORIDE 0.9% 1,000 ML IV SCH ×2 (04:59→18:19)
[2018-02-25 07:26] LABS: Anisocytosis Slight; Basophils # (A) 0.1 k/uL (0-0.2); Basophils % (A) 1 %; Eosinophils # (A) 0.5 k/uL (0-0.7); Eosinophils % (A) 6 %; HCT 30.8 % (39.0-53.0); HGB 9.8 gm/dL (13.0-17.5); Hypochromasia Slight; Lymphocytes # (A) 1.3 k/uL (1.0-4.8); Lymphocytes % (A) 16 %; MCH 32.8 pg (25.0-35.0); MCHC 31.9 g/dL (31.0-37.0); MCV 102.6 fL (80.0-100.0); Macrocytosis Moderate; Mean Platelet Volume 7.2; Monocytes # (A) 0.6 k/uL (0-1.0); Monocytes % (A) 8 %; Neutrophils # (A) 5.1 k/uL (1.3-7.7); Neutrophils % (A) 65 %; Platelet Count 419 k/uL (150-450); RDW 17.3 % (11.5-15.5); WBC 7.8 k/uL (3.8-10.6)
[2018-02-25 07:36] LABS: Calcium 8.5 mg/dL (8.4-10.2); Potassium 4.7 mmol/L (3.5-5.1)
[2018-02-25] MEDS: IPRATROPIUM 0.5 MG/2.5 ML NEBU INHALATION SCH ×4 (08:02→19:55)
--- NOTE | 2018-02-25 08:47 | OP ---
OPERATIVE REPORT PREOP DIAGNOSIS: Gangrene of the left foot big toe with infected nail and bone is exposed. OPERATION: Left foot big toe amputation. This patient was brought to the operating room. Left foot was prepped and draped in usual sterile manner under local and IV sedation. 1% lidocaine were infected for the block and then an elliptical incision was made starting from the dorsal aspect of the foot going circumferentially and going to posteriorly and plantar aspect of the foot, deepened through the skin fat and fascia. After that, dissection was carried out until we found the proximal phalanx and ligaments were divided from the metatarsophalangeal joint and the tendons were divided and the big toe was removed. We took some deep culture. Hemostasis was controlled and the fascia was approximated with 3-0 Vicryl with interrupted suture and skin were approximated with 4-0 nylon with interrupted suture. Dressing applied. Patient tolerated the procedure well. MMODL / IJN: [id number] /
[2018-02-25] MEDS: CARVEDILOL 3.125 MG TAB PO SCH (09:13)
[2018-02-25] MEDS: PANTOPRAZOLE 40 MG TABLET PO SCH (09:13)
[2018-02-25] MEDS: OXYBUTYNIN 10 MG TAB.ER.24 PO SCH ×2 (09:13→20:36)
[2018-02-25] MEDS: HEPARIN SODIUM,PORCINE 5,000 UNIT/ML 1 ML VIAL SQ SCH ×2 (09:13→20:37)
[2018-02-25] MEDS: GABAPENTIN 300 MG CAP PO SCH ×3 (09:13→20:37)
[2018-02-25] MEDS: NICOTINE 14MG/24HR PATCH TRANSDERM SCH (09:14)
--- NOTE | 2018-02-25 16:40 | P.PN ---
Subjective Progress Note Date: 02/25/18 Principal diagnosis: left big toe osteomyelitis Mr. Watts is a 77-year-old male with a past medical history of coronary artery disease, COPD, CVA, hypertension, [place] coming to the hospital with a chief complaint of left great toe pain and ulcer that has been going on for past 3 months. Patient was started on clindamycin but did not show significant improvement so admitted for further management. Wound cultures were obtained yesterday and patient has been started on vancomycin. Patient had a left big toe amputation by vascular surgery yesterday. Patient is comfortably lying in bed appears to be no acute distress. On review of systems- Constitutional-denies having any fevers chills or rigors Respiratory- no cough or difficulty in breathing Cardiovascular -no chest pain or palpitations GI - no abdominal pain nausea vomiting or diarrhea - no dysuria or hematuria Patient's medications have been reviewed. Objective - Vital Signs Vital signs: Vital Signs Temp 98.6 F 02/25/18 15:00 Pulse 72 02/25/18 16:16 Resp 18 02/25/18 15:00 BP 145/68 02/25/18 15:00 Pulse Ox 97 02/25/18 15:00 Intake & Output 02/24/18 02/25/18 02/25/18 18:59 06:59 18:59 Intake Total 850 500 Output Total 610 950 Balance 240 -950 500 Weight 90.7 kg Intake: IV 400 Intake, IV Titration 500 Amount Sodium Chloride 0.9% 1, 500 000 ml @ 75 mls/hr IV . [id number] [facility] Rx#:[id number] Oral 450 Output: Urine 600 950 Estimated Blood Loss 10 Other: # Voids 3 - Exam GEN. APPEARANCE: alert, in no apparent distress HEAD EXAM: atraumatic, normocephalic, normal inspection EYE EXAM: normal appearance, PERRL, EOMI. Absent: scleral icterus, conjunctival injection, periorbital swelling ENT EXAM: normal exam, mucous membranes moist NECK EXAM: normal inspection. Absent: tenderness, meningismus, full ROM, lymphadenopathy RESPIRATORY EXAM: normal lung sounds bilaterally. Absent: respiratory distress , wheezes, rales, rhonchi, stridor CARDIOVASCULAR EXAM: regular rate, normal rhythm, normal heart sounds. Absent : systolic murmur, diastolic murmur, rubs, gallop, clicks GI/ABDOMINAL EXAM: soft, normal bowel sounds. Absent: distended, tenderness, guarding, rebound, rigid EXTREMITIES EXAM: Left big toe -status post amputation. Dressing in place with mild discharge. NEUROLOGICAL EXAM: alert, oriented X3, no focal neurological deficits PSYCHIATRIC EXAM: normal affect, normal mood SKIN EXAM: warm, dry, intact, normal color. Absent: rash - Labs CBC & Chem 7: 02/25/18 06:53 02/25/18 06:53 Labs: Abnormal Lab Results - Last 24 Hours (Table) 02/25/18 02/25/18 Range/Units 06:53 06:53 RBC 3.00 L (4.30-5.90) m/uL Hgb 9.8 L (13.0-17.5) gm/dL Hct 30.8 L (39.0-53.0) % MCV 102.6 H (80.0-100.0) fL RDW 17.3 H (11.5-15.5) % Chloride 112 H (98-107) mmol/L Microbiology - Last 24 Hours (Table) 02/23/18 13:15 Anaerobic Culture - Preliminary Toe - Left First 02/23/18 13:15 Gram Stain - Final Toe - Left First Wound Culture - Final Methicillin resist S. aureus Enterococcus faecalis 02/22/18 15:49 Blood Culture Gram Stain - Preliminary Blood 02/22/18 15:49 Blood Culture - Final Blood Assessment and Plan Assessment: ASSESSMENT Left big toe osteomyelitis Acute on chronic kidney injury Chronic kidney injury stage III COPD CVA Hypertension Hyperlipidemia History of coronary artery disease History of mitral wall prolapse History of spinal stenosis History of MRSA History of carotid endarterectomy Plan: Continue with vancomycin - renally dosed. Wound culture is currently pending. Patient had left big toe amputation done by vascular surgery yesterday. Continue with the rest of his current medication regimen. Further recommendations to follow depending on the progress of the patient.
[2018-02-25] MEDS: ISOSORBIDE MONONITRATE ER 30 MG TAB.ER.24H PO SCH (20:36)
[2018-02-25] MEDS: ATORVASTATIN 10 MG TAB PO SCH (20:37)
[2018-02-25] MEDS: DOCUSATE 100 MG CAP PO SCH (20:37)
[2018-02-25] MEDS: HYDROcodone/APAP 10-325MG 1 EACH TAB PO PRN (22:32)
[2018-02-25] MEDS: MIRTAZAPINE 30 MG PO SCH (22:38)
--- NOTE | 2018-02-26 00:53 | PN ---
PROGRESS NOTE DATE OF SERVICE: 02/25/2018. REASON FOR FOLLOWUP: Left big toe osteomyelitis MRSA. INTERVAL HISTORY: The patient is currently. He is breathing comfortably. Denies having any chest pain, shortness of breath or cough. No abdominal pain or any worsening pain to the left big toe area. EXAMINATION: Blood pressure is 145/68 with a pulse of 73, temperature 98.6. He is 97% on room air. General description is an elderly male lying in bed in no distress. Respiratory system unlabored breathing. Clear to auscultation anteriorly. Heart S1, S2. Regular rate and rhythm. Abdomen soft. No tenderness. Left foot is currently dressed up. No obvious drainage on the dressing. LABS: Hemoglobin 9.8, white count 7.8 with a BUN of 17, creatinine 1.23. The left foot wound culture finalized with MRSA enterococcus faecalis. Blood cultures preliminary with gram-positive cocci. DIAGNOSTIC IMPRESSION AND PLAN: Patient with big toe osteomyelitis. Cultures have been positive for MRSA Enterococcus now with evidence of a gram-positive bacteremia. Blood cultures will be repeated to document clearance of his bacteremia. In view of the bacteremia and the underlying osteomyelitis, the patient will need a PICC line for outpatient IV antibiotic therapy. Hopefully, not a long treatment as the infected part has been amputated. Will wait for the followup blood culture to be negative before placing a PICC line. Continue supportive care. MMODL / IJN: [id number] /
[2018-02-26] MEDS: IPRATROPIUM 0.5 MG/2.5 ML NEBU INHALATION SCH ×4 (07:50→19:51)
[2018-02-26] MEDS: NICOTINE 14MG/24HR PATCH TRANSDERM SCH (08:15)
[2018-02-26] MEDS: GABAPENTIN 300 MG CAP PO SCH ×3 (08:15→21:46)
[2018-02-26] MEDS: CARVEDILOL 3.125 MG TAB PO SCH (08:15)
[2018-02-26] MEDS: HEPARIN SODIUM,PORCINE 5,000 UNIT/ML 1 ML VIAL SQ SCH ×2 (08:16→21:44)
[2018-02-26] MEDS: OXYBUTYNIN 10 MG TAB.ER.24 PO SCH ×2 (08:16→21:46)
[2018-02-26] MEDS: PANTOPRAZOLE 40 MG TABLET PO SCH (08:16)
[2018-02-26] MEDS: DOCUSATE 100 MG CAP PO SCH ×2 (08:20→21:45)
[2018-02-26] MEDS: HYDROcodone/APAP 10-325MG 1 EACH TAB PO PRN ×2 (09:08→16:40)
[2018-02-26] MEDS: SODIUM CHLORIDE 0.9% 1,000 ML IV SCH ×2 (12:40→20:35)
[2018-02-26] MEDS ORDERED: VANCOMYCIN TROUGH DUE 1 EACH MISC MISCELLANE ONE (13:00)
--- NOTE | 2018-02-26 13:48 | PN ---
PROGRESS NOTE Patient had a left big toe amputation. Post gangrene of the left foot. The patient's dressing is changed today. side is good. No redness or discharge noted. The patient is on IV antibiotics, infectious Disease. We will discuss with Infectious Disease about the IV medication. Then if goes home, I will follow him in my office on next . NIKKY / RUTHY: [id number] /
[2018-02-26 14:32] LABS: Anisocytosis Slight; Basophils # (A) 0.1 k/uL (0-0.2); Basophils % (A) 1 %; Eosinophils # (A) 0.4 k/uL (0-0.7); Eosinophils % (A) 5 %; HCT 31.5 % (39.0-53.0); HGB 10.3 gm/dL (13.0-17.5); Hypochromasia Slight; Lymphocytes % (A) 12 %; MCH 33.4 pg (25.0-35.0); MCHC 32.6 g/dL (31.0-37.0); MCV 102.5 fL (80.0-100.0); Macrocytosis Moderate; Mean Platelet Volume 8.3; Monocytes # (A) 0.7 k/uL (0-1.0); Monocytes % (A) 8 %; Neutrophils # (A) 6.3 k/uL (1.3-7.7); Neutrophils % (A) 73 %; Platelet Count 402 k/uL (150-450); RBC 3.07 m/uL (4.30-5.90); RDW 16.8 % (11.5-15.5); WBC 8.6 k/uL (3.8-10.6)
[2018-02-26] MEDS: VANCOMYCIN 1,500 MG in SODIUM CHLORIDE 0.9% 250 ML IVPB SCH (15:31)
--- NOTE | 2018-02-26 16:46 | P.PN ---
Subjective Progress Note Date: 02/26/18 Principal diagnosis: Left big toe osteomyelitis Mr. Watts is a 77-year-old male with a past medical history of coronary artery disease, COPD, CVA, hypertension, [place] coming to the hospital with a chief complaint of left great toe pain and ulcer that has been going on for past 3 months. Patient was started on clindamycin but did not show significant improvement so admitted for further management. Wound cultures were obtained yesterday and patient has been started on vancomycin. Patient had a left big toe amputation by vascular surgery on 02/24/18. Today the patient is comfortably lying in bed appears to be no acute distress. On review of systems- Constitutional-denies having any fevers chills or rigors Respiratory- no cough or difficulty in breathing Cardiovascular -no chest pain or palpitations GI - no abdominal pain nausea vomiting or diarrhea - no dysuria or hematuria Patient's medications have been reviewed. Objective - Vital Signs Vital signs: Vital Signs Temp 98.1 F 02/26/18 13:35 Pulse 71 02/26/18 16:23 Resp 20 02/26/18 13:35 BP 120/62 02/26/18 13:35 Pulse Ox 97 02/26/18 13:35 Intake & Output 02/25/18 02/26/18 02/26/18 18:59 06:59 18:59 Intake Total 500 Output Total 650 200 Balance 500 -650 -200 Intake: Intake, IV Titration 500 Amount Sodium Chloride 0.9% 1, 500 000 ml @ 75 mls/hr IV . [id number] [facility] Rx#:[id number] Output: Urine 650 200 Other: Voiding Method Toilet # Voids 3 0 2 # Bowel Movements 0 - Exam GEN. APPEARANCE: alert, in no apparent distress HEAD EXAM: atraumatic, normocephalic, normal inspection EYE EXAM: normal appearance, PERRL, EOMI. Absent: scleral icterus, conjunctival injection, periorbital swelling ENT EXAM: normal exam, mucous membranes moist NECK EXAM: normal inspection. Absent: tenderness, meningismus, full ROM, lymphadenopathy RESPIRATORY EXAM: Normal bilateral breath sounds. No wheezes or crackles. CARDIOVASCULAR EXAM: S1 and S2 heard. No additional sounds. GI/ABDOMINAL EXAM: soft, normal bowel sounds. Absent: distended, tenderness, guarding, rebound, rigid EXTREMITIES EXAM: Left big toe -status post amputation. Dressing in place with mild discharge. NEUROLOGICAL EXAM: alert, oriented X3, no focal neurological deficits - Labs CBC & Chem 7: 02/26/18 13:55 02/25/18 06:53 Labs: Abnormal Lab Results - Last 24 Hours (Table) 02/26/18 Range/Units 13:55 RBC 3.07 L (4.30-5.90) m/uL Hgb 10.3 L (13.0-17.5) gm/dL Hct 31.5 L (39.0-53.0) % MCV 102.5 H (80.0-100.0) fL RDW 16.8 H (11.5-15.5) % Microbiology - Last 24 Hours (Table) 02/23/18 13:15 Gram Stain - Final Toe - Left First Wound Culture - Final Methicillin resist S. aureus Enterococcus faecalis 02/22/18 15:49 Blood Culture Gram Stain - Preliminary Blood Blood Culture - Preliminary Presumptive MRSA 02/23/18 13:15 Anaerobic Culture - Preliminary Toe - Left First Assessment and Plan Assessment: ASSESSMENT Left big toe osteomyelitis Acute on chronic kidney injury Chronic kidney injury stage III COPD CVA Hypertension Hyperlipidemia History of coronary artery disease History of mitral wall prolapse History of spinal stenosis History of MRSA History of carotid endarterectomy Plan: Continue with vancomycin - renally dosed. Wound culture is currently pending. Patient had left big toe amputation done by vascular surgery on . Continue with the rest of his current medication regimen. Further recommendations to follow depending on the progress of the patient.
[2018-02-26 17:12] LABS: Calcium 8.4 mg/dL (8.4-10.2); Potassium 5.5 mmol/L (3.5-5.1)
[2018-02-26] MEDS ORDERED: MAGNESIUM HYDROXIDE 2,400 MG/10 ML CUP PO PRN (18:50)
[2018-02-26] MEDS: MIRTAZAPINE 30 MG PO SCH (21:39)
[2018-02-26] MEDS: MORPHINE SULFATE 4 MG/ML SYRINGE IV PRN (21:42)
[2018-02-26] MEDS: NYSTATIN 100,000UNIT/GM CREAM 30 GM TUBE TOPICAL PRN (21:45)
[2018-02-26] MEDS: ATORVASTATIN 10 MG TAB PO SCH (21:46)
[2018-02-26] MEDS: ISOSORBIDE MONONITRATE ER 30 MG TAB.ER.24H PO SCH (21:46)
--- NOTE | 2018-02-26 22:00 | PN ---
PROGRESS NOTE DATE OF SERVICE: 02/26/2018. REASON FOR FOLLOWUP: Left big toe osteomyelitis, bacteremia. INTERVAL HISTORY: The patient is currently afebrile. He is breathing comfortably. Denies having any chest pain. No shortness of breath or cough. No abdominal pain or any worsening pain to the left big toe area. EXAMINATION: Blood pressure 120/62 with a pulse of 74, temperature 98.1, he is 97% on room air. GENERAL DESCRIPTION: An elderly male lying in bed in no distress. RESPIRATORY SYSTEM: Unlabored breathing. Clear to auscultation anteriorly. HEART: S1, S2. Regular rate and rhythm. ABDOMEN: Soft, no tenderness. EXTREMITIES: Left foot is currently dressed up, no obvious drainage on the dressing. LABS: Hemoglobin is 10.2 with white count 8.6. BUN of 14, creatinine 1.25. Vancomycin trough of 20. Blood culture with presumptive MRSA. Two cultures with MRSA and Enterococcus faecalis. DIAGNOSTIC IMPRESSION AND PLAN: Patient with left foot osteomyelitis, MRSA with MRSA bacteremia. Blood culture repeat has been ordered. Will wait for them to be negative before ordering a PICC line for outpatient IV antibiotic therapy. Duration of antibiotic should be from 2 to 4 weeks, depending on his clinical response. Continue supportive care. MMODL / IJN: [id number] /
[2018-02-27] MEDS: VANCOMYCIN 1,500 MG in SODIUM CHLORIDE 0.9% 250 ML IVPB SCH ×2 (05:32→21:27)
[2018-02-27] MEDS: IPRATROPIUM 0.5 MG/2.5 ML NEBU INHALATION SCH ×4 (08:21→21:07)
[2018-02-27] MEDS: NICOTINE 14MG/24HR PATCH TRANSDERM SCH (08:28)
[2018-02-27] MEDS: DOCUSATE 100 MG CAP PO SCH ×2 (08:29→21:26)
[2018-02-27] MEDS: PANTOPRAZOLE 40 MG TABLET PO SCH (08:29)
[2018-02-27] MEDS: HEPARIN SODIUM,PORCINE 5,000 UNIT/ML 1 ML VIAL SQ SCH ×2 (08:29→21:27)
[2018-02-27] MEDS: OXYBUTYNIN 10 MG TAB.ER.24 PO SCH ×2 (08:29→21:26)
[2018-02-27] MEDS: GABAPENTIN 300 MG CAP PO SCH ×3 (08:29→21:26)
[2018-02-27] MEDS: CARVEDILOL 3.125 MG TAB PO SCH (08:29)
[2018-02-27] MEDS: NYSTATIN 100,000UNIT/GM CREAM 30 GM TUBE TOPICAL PRN (08:31)
[2018-02-27 11:11] LABS: Anisocytosis Slight; Basophils # (A) 0.1 k/uL (0-0.2); Basophils % (A) 1 %; Eosinophils # (A) 0.4 k/uL (0-0.7); Eosinophils % (A) 4 %; HGB 9.8 gm/dL (13.0-17.5); Hypochromasia Moderate; Lymphocytes % (A) 11 %; MCHC 32.7 g/dL (31.0-37.0); Macrocytosis Moderate; Monocytes # (A) 0.6 k/uL (0-1.0); Monocytes % (A) 6 %; Neutrophils # (A) 7.4 k/uL (1.3-7.7); Neutrophils % (A) 76 %; Platelet Count 444 k/uL (150-450); RBC 2.89 m/uL (4.30-5.90); RDW 16.8 % (11.5-15.5); WBC 9.8 k/uL (3.8-10.6)
[2018-02-27 11:26] LABS: Calcium 8.9 mg/dL (8.4-10.2); Potassium 5.3 mmol/L (3.5-5.1)
[2018-02-27] MEDS: MAG HYDROX/AL HYDROX/SIMETH 30 ML, diphenhydrAMINE ELIXIR 75 MG, LIDOCAINE VISCOUS 30 ML PO SCH ×12 (12:58→21:26)
[2018-02-27] MEDS: SODIUM CHLORIDE 0.9% 1,000 ML IV SCH ×2 (12:58→22:44)
--- NOTE | 2018-02-27 13:55 | PN ---
PROGRESS NOTE This gentleman is a 77-year-old gentleman who had a left foot big toe amputation done. Patient's dressing was changed, stump site is clean and no discharge or redness noted. From surgical point of view, patient can go home. I will follow him in my office next . NIKKY / RUTHY: [id number] /
[2018-02-27] MEDS: MIRTAZAPINE 30 MG PO SCH (21:15)
[2018-02-27] MEDS: ISOSORBIDE MONONITRATE ER 30 MG TAB.ER.24H PO SCH (21:26)
[2018-02-27] MEDS: ATORVASTATIN 10 MG TAB PO SCH (21:26)
--- NOTE | 2018-02-27 22:27 | P.PN ---
Subjective Progress Note Date: 02/27/18 Principal diagnosis: Left big toe osteomyelitis Mr. Watts is a 77-year-old male with a past medical history of coronary artery disease, COPD, CVA, hypertension, [place] coming to the hospital with a chief complaint of left great toe pain and ulcer that has been going on for past 3 months. Patient was started on clindamycin but did not show significant improvement so admitted for further management. Wound cultures were obtained and patient has been started on vancomycin. Patient had a left big toe amputation by vascular surgery on 02/24/18. On 02/27/18 - Today the patient is comfortably lying in bed appears to be no acute distress. Pt complained on oral sores at the corners of his lips. On review of systems- Constitutional-denies having any fevers chills or rigors Respiratory- no cough or difficulty in breathing Cardiovascular -no chest pain or palpitations GI - no abdominal pain nausea vomiting or diarrhea - no dysuria or hematuria Patient's medications have been reviewed. Active Medications Acetaminophen (Tylenol Tab) 650 mg PO Q6HR PRN PRN Reason: Mild Pain or Fever > 100.5 Hydrocodone Bitart/Acetaminophen ([place] 10) 1 each PO TID PRN PRN Reason: MODERATE Pain Last Admin: 02/26/18 16:40 Dose: 1 each Alprazolam (Xanax) 0.25 mg PO TID PRN PRN Reason: Anxiety Last Admin: 02/27/18 08:40 Dose: 0.25 mg Atorvastatin Calcium (Lipitor) 10 mg PO HS [facility] Last Admin: 02/27/18 21:26 Dose: 10 mg Carvedilol (Coreg) 3.125 mg PO AC-BRKFST [facility] Last Admin: 02/27/18 08:29 Dose: 3.125 mg Al Hydroxide/Mg Hydroxide 30 ml/ Diphenhydramine HCl 75 mg/Lidocaine HCl 30 ml 0 ml PO TID [facility] Last Admin: 02/27/18 21:26 Dose: 5 ml Docusate Sodium (Colace) 100 mg PO BID [facility] Last Admin: 02/27/18 21:26 Dose: 100 mg Gabapentin (Neurontin) 300 mg PO TID [facility] Last Admin: 02/27/18 21:26 Dose: 300 mg Heparin Sodium (Porcine) (Heparin) 5,000 unit SQ Q12HR [facility] Last Admin: 02/27/18 21:27 Dose: 5,000 unit Sodium Chloride (Saline 0.9%) 1,000 mls @ 75 mls/hr IV .[id number] [facility] Last Admin: 02/27/18 12:58 Dose: 75 mls/hr Vancomycin HCl 1,500 mg/ (Sodium Chloride) 250 mls @ 125 mls/hr IVPB Q16H [facility] Last Admin: 02/27/18 21:27 Dose: 125 mls/hr Ibuprofen (Motrin) 800 mg PO Q8H PRN PRN Reason: MILD Pain Last Admin: 02/24/18 08:24 Dose: 800 mg Ipratropium [place] (Atrovent Nebulized) 0.5 mg INHALATION RT-QID [facility] Last Admin: 02/27/18 21:07 Dose: 0.5 mg Isosorbide Mononitrate (Imdur) 30 mg PO [facility] Last Admin: 02/27/18 21:26 Dose: 30 mg Magnesium Hydroxide (Milk Of Magnesia) 2,400 mg PO DAILY PRN PRN Reason: Constipation Morphine Sulfate (Morphine Sulfate (Inj)) 4 mg IV Q4HR PRN PRN Reason: Severe Pain Last Admin: 02/26/18 21:42 Dose: 4 mg Naloxone HCl (Narcan) 0.2 mg IV Q2M PRN PRN Reason: Opioid Reversal Nicotine (Habitrol 14mg/24hr Patch) 1 patch TRANSDERM DAILY [facility] Last Admin: 02/27/18 08:28 Dose: 1 patch Nitroglycerin (Nitrostat) 0.4 mg SUBLINGUAL Q5M PRN PRN Reason: Chest Pain Non-Formulary Medication (Mirtazapine [Remeron (Soluspan)]) 30 mg PO [facility] Last Admin: 02/27/18 21:15 Dose: Not Given Nystatin (Mycostatin Cream) 1 applic TOPICAL BID PRN PRN Reason: Skin Irritation Last Admin: 02/27/18 08:31 Dose: 1 applic Nystatin (Mycostatin Oral Susp) 500,000 unit PO QID [facility] Ondansetron HCl (Zofran) 4 mg IVP Q8HR PRN PRN Reason: Nausea And Vomiting Oxybutynin Chloride (Ditropan Xl) 10 mg PO BID [facility] Last Admin: 02/27/18 21:26 Dose: 10 mg Pantoprazole Sodium (Protonix) 40 mg PO AC-BRKFST [facility] Last Admin: 02/27/18 08:29 Dose: 40 mg Temazepam (Restoril) 15 mg PO HS PRN PRN Reason: Insomnia Objective - Vital Signs Vital signs: Vital Signs Temp 98.0 F 02/27/18 15:00 Pulse 75 02/27/18 15:58 Resp 16 02/27/18 15:58 BP 127/65 02/27/18 15:00 Pulse Ox 92 L 02/27/18 15:00 Intake & Output 02/26/18 02/27/18 02/27/18 18:59 06:59 18:59 Intake Total 300 Output Total 200 1300 Balance -200 300 -1300 Weight 90.7 kg Intake: Oral 300 Output: Urine 200 1300 Other: Voiding Method Toilet Toilet Toilet # Voids 3 1 2 # Bowel Movements 0 - Exam GEN. APPEARANCE: alert, in no apparent distress HEAD EXAM: atraumatic, normocephalic, normal inspection EYE EXAM: normal appearance, PERRL, EOMI. Absent: scleral icterus, conjunctival injection, periorbital swelling ENT EXAM: normal exam, mucous membranes moist NECK EXAM: normal inspection. Absent: tenderness, meningismus, full ROM, lymphadenopathy RESPIRATORY EXAM: Normal bilateral breath sounds. No wheezes or crackles. CARDIOVASCULAR EXAM: S1 and S2 heard. No additional sounds. GI/ABDOMINAL EXAM: soft, normal bowel sounds. Absent: distended, tenderness, guarding, rebound, rigid EXTREMITIES EXAM: Left big toe -status post amputation. Dressing in place with mild discharge. NEUROLOGICAL EXAM: alert, oriented X3, no focal neurological deficits - Labs CBC & Chem 7: 02/27/18 10:27 02/27/18 10:27 Labs: Abnormal Lab Results - Last 24 Hours (Table) 02/26/18 02/27/18 02/27/18 Range/Units 16:33 10:27 10:27 RBC 2.89 L (4.30-5.90) m/uL Hgb 9.8 L (13.0-17.5) gm/dL Hct 30.0 L (39.0-53.0) % MCV 104.0 H (80.0-100.0) fL RDW 16.8 H (11.5-15.5) % Potassium 5.5 H 5.3 H (3.5-5.1) mmol/L Chloride 108 H (98-107) mmol/L Microbiology - Last 24 Hours (Table) 02/26/18 13:55 Blood Culture - Preliminary Blood No Growth after 24 hours 02/23/18 13:15 Anaerobic Culture - Final Toe - Left First [place] albicans 02/24/18 15:18 Gram Stain - Preliminary Toe - Left First Wound Culture - Preliminary Presumptive MRSA Group D Enterococcus 02/22/18 15:49 Blood Culture Gram Stain - Final Blood Blood Culture - Final Methicillin resist S. aureus 02/24/18 15:18 Anaerobic Culture - Preliminary Toe - Left First Assessment and Plan Assessment: ASSESSMENT Left big toe osteomyelitis Acute on chronic kidney injury Chronic kidney injury stage III COPD CVA Hypertension Hyperlipidemia History of coronary artery disease History of mitral wall prolapse History of spinal stenosis History of MRSA History of carotid endarterectomy Plan: Continue with vancomycin - renally dosed. Wound culture showing MRSA, Enterococcus fecalis and Candid albicans . Patient had left big toe amputation done by vascular surgery on 02/24/18 . Continue with the rest of his current medication regimen. Cools solution ordered for mouth ulcers. Further recommendations based on the clinical course.
--- NOTE | 2018-02-27 23:28 | PN ---
PROGRESS NOTE DATE OF SERVICE: 02/27/2018 REASON FOR FOLLOWUP: Left big toe osteomyelitis with MRSA bacteremia. INTERVAL HISTORY: The patient is currently afebrile. He seems to be complaining of some sores in his mouth, though denies having any difficulty swallowing. Denies having any chest pain, shortness of breath or cough. No abdominal pain or any pain in his left foot area. PHYSICAL EXAMINATION: Blood pressure is 127/65 with a pulse of 75, temperature 98. He is 92% on room air. General description is an elderly male lying in bed in no distress. RESPIRATORY SYSTEM: Unlabored breathing. Clear to auscultation anteriorly. HEART: S1, S2. Regular rate and rhythm. ABDOMEN: Soft. No tenderness. Left foot is currently dressed up. No obvious drainage on the dressing. LABS: Hemoglobin 9.9, white count 9.8 with a BUN of 12, creatinine 1.25. Vancomycin trough is slightly on the high side. Blood culture repeat 02/26/2018 has been negative so far. DIAGNOSTIC IMPRESSION AND PLAN: 1. Patient with left big toe osteomyelitis with methicillin-resistant Staphylococcus aeruginosa bacteremia. Will wait for the blood cultures drawn yesterday to be negative before placing a PICC line for outpatient IV vancomycin therapy. We will continue the patient on vancomycin at this point, watching his kidney function closely. 2. Possible oral thrush. Will add nystatin swish and swallow and see response to it. Continue supportive care. MMODL / IJN: [id number] /
[2018-02-28] MEDS: IPRATROPIUM 0.5 MG/2.5 ML NEBU INHALATION SCH ×4 (07:35→21:59)
[2018-02-28] MEDS: OXYBUTYNIN 10 MG TAB.ER.24 PO SCH ×2 (08:21→21:39)
[2018-02-28] MEDS: MAG HYDROX/AL HYDROX/SIMETH 30 ML, diphenhydrAMINE ELIXIR 75 MG, LIDOCAINE VISCOUS 30 ML PO SCH ×9 (08:21→21:39)
[2018-02-28] MEDS: GABAPENTIN 300 MG CAP PO SCH ×3 (08:21→21:39)
[2018-02-28] MEDS: NYSTATIN 100,000 UNIT/ML SUSP 500,000 UNIT/5 ML CUP PO SCH ×4 (08:21→21:39)
[2018-02-28] MEDS: PANTOPRAZOLE 40 MG TABLET PO SCH (08:21)
[2018-02-28] MEDS: HEPARIN SODIUM,PORCINE 5,000 UNIT/ML 1 ML VIAL SQ SCH ×2 (08:21→21:38)
[2018-02-28] MEDS: DOCUSATE 100 MG CAP PO SCH ×2 (08:21→21:38)
[2018-02-28] MEDS: CARVEDILOL 3.125 MG TAB PO SCH (08:22)
[2018-02-28] MEDS: NICOTINE 14MG/24HR PATCH TRANSDERM SCH (08:22)
[2018-02-28] MEDS: MORPHINE SULFATE 4 MG/ML SYRINGE IV PRN (08:25)
[2018-02-28 10:13] LABS: Anisocytosis Slight; Basophils # (A) 0.1 k/uL (0-0.2); Basophils % (A) 1 %; Eosinophils # (A) 0.4 k/uL (0-0.7); Eosinophils % (A) 4 %; HCT 31.9 % (39.0-53.0); HGB 10.1 gm/dL (13.0-17.5); Hypochromasia Slight; Lymphocytes # (A) 1.1 k/uL (1.0-4.8); Lymphocytes % (A) 11 %; MCH 33.3 pg (25.0-35.0); MCHC 31.8 g/dL (31.0-37.0); MCV 104.7 fL (80.0-100.0); Macrocytosis Moderate; Mean Platelet Volume 7.6; Monocytes # (A) 0.6 k/uL (0-1.0); Monocytes % (A) 6 %; Neutrophils # (A) 7.8 k/uL (1.3-7.7); Neutrophils % (A) 77 %; Platelet Count 475 k/uL (150-450); RBC 3.05 m/uL (4.30-5.90); RDW 17.2 % (11.5-15.5); WBC 10.1 k/uL (3.8-10.6)
[2018-02-28 10:38] LABS: Calcium 8.7 mg/dL (8.4-10.2); Potassium 4.5 mmol/L (3.5-5.1)
[2018-02-28] MEDS: VANCOMYCIN 1,500 MG in SODIUM CHLORIDE 0.9% 250 ML IVPB SCH (15:28)
[2018-02-28] MEDS: SODIUM CHLORIDE 0.9% 1,000 ML IV SCH (15:29)
[2018-02-28] MEDS: ISOSORBIDE MONONITRATE ER 30 MG TAB.ER.24H PO SCH (21:38)
[2018-02-28] MEDS: ATORVASTATIN 10 MG TAB PO SCH (21:38)
[2018-02-28] MEDS: MIRTAZAPINE 30 MG PO SCH (21:38)
--- NOTE | 2018-02-28 22:56 | PN ---
PROGRESS NOTE DATE OF SERVICE: 02/28/2018 REASON FOR FOLLOWUP: Left big toe acute osteomyelitis secondary to MRSA with MRSA bacteremia. INTERVAL HISTORY: The patient is currently afebrile. He is breathing comfortably. Denies having any chest pain or shortness of breath or cough. No abdominal pain or any worsening pain in the left foot area. No diarrhea. PHYSICAL EXAMINATION: Blood pressure is 115/55 with a pulse of 71, temperature 98.5. He is 95% on room air. General description is an elderly male lying in bed in no distress. RESPIRATORY SYSTEM: Unlabored breathing. Clear to auscultation anteriorly. HEART: S1, S2. Regular rate and rhythm. ABDOMEN: Soft. No tenderness. Left foot wound is currently dressed up. No obvious drainage on the dressing. LABS: Blood culture repeat from 02/26 has been negative. DIAGNOSTIC IMPRESSION AND PLAN: Patient with methicillin-resistant Staphylococcus aeruginosa bacteremia in a patient who did have left big toe acute osteomyelitis, status post left big toe amputation. PLAN: Plan at this time is to continue the patient on vancomycin, Pharmacy to dose, target of depending upon his clinical response. We will obtain baseline CRP and sed rate. Continue with supportive care. MMODL / IJN: [id number] /
[2018-03-01] MEDS: SODIUM CHLORIDE 0.9% 1,000 ML IV SCH ×2 (04:23→13:57)
[2018-03-01] MEDS: VANCOMYCIN 1,500 MG in SODIUM CHLORIDE 0.9% 250 ML IVPB SCH (05:39)
[2018-03-01 06:37] VITALS: BP 126/70; PULSE 72; RESP 16; TEMP 98.2
[2018-03-01] MEDS: NICOTINE 14MG/24HR PATCH TRANSDERM SCH (08:11)
[2018-03-01] MEDS: OXYBUTYNIN 10 MG TAB.ER.24 PO SCH (08:11)
[2018-03-01] MEDS: PANTOPRAZOLE 40 MG TABLET PO SCH (08:11)
[2018-03-01] MEDS: NYSTATIN 100,000 UNIT/ML SUSP 500,000 UNIT/5 ML CUP PO SCH ×2 (08:11→13:57)
[2018-03-01] MEDS: DOCUSATE 100 MG CAP PO SCH (08:11)
[2018-03-01] MEDS: CARVEDILOL 3.125 MG TAB PO SCH (08:11)
[2018-03-01] MEDS: MAG HYDROX/AL HYDROX/SIMETH 30 ML, diphenhydrAMINE ELIXIR 75 MG, LIDOCAINE VISCOUS 30 ML PO SCH ×3 (08:12)
[2018-03-01] MEDS: GABAPENTIN 300 MG CAP PO SCH (08:12)
[2018-03-01] MEDS: HEPARIN SODIUM,PORCINE 5,000 UNIT/ML 1 ML VIAL SQ SCH (08:12)
[2018-03-01] MEDS: IPRATROPIUM 0.5 MG/2.5 ML NEBU INHALATION SCH ×3 (09:00→15:47)
[2018-03-01] MEDS ORDERED: LIDOCAINE 1% (PF) 10MG/ML VIAL SQ ONE (12:58)
--- NOTE | 2018-03-01 15:46 | P.PN ---
Subjective Progress Note Date: 02/28/18 Principal diagnosis: Left big toe osteomyelitis Mr. Watts is a 77-year-old male with a past medical history of coronary artery disease, COPD, CVA, hypertension, [place] coming to the hospital with a chief complaint of left great toe pain and ulcer that has been going on for past 3 months. Patient was started on clindamycin but did not show significant improvement so admitted for further management. Wound cultures were obtained and patient has been started on vancomycin. Patient had a left big toe amputation by vascular surgery on 02/24/18. On 02/27/18 - Today the patient is comfortably lying in bed appears to be no acute distress. Pt complained on oral sores at the corners of his lips. 02/28/2018 Patient denied any new complaints today. Mouth sores are better. Being continued on vancomycin and ID recommends to continue with antibiotics as an outpatient to complete the course. PICC line tomorrow. On review of systems- Constitutional-denies having any fevers chills or rigors Respiratory- no cough or difficulty in breathing Cardiovascular -no chest pain or palpitations GI - no abdominal pain nausea vomiting or diarrhea - no dysuria or hematuria Patient's medications have been reviewed. Active Medications Acetaminophen (Tylenol Tab) 650 mg PO Q6HR PRN PRN Reason: Mild Pain or Fever > 100.5 Hydrocodone Bitart/Acetaminophen ([place] 10) 1 each PO TID PRN PRN Reason: MODERATE Pain Last Admin: 02/26/18 16:40 Dose: 1 each Alprazolam (Xanax) 0.25 mg PO TID PRN PRN Reason: Anxiety Last Admin: 02/27/18 08:40 Dose: 0.25 mg Atorvastatin Calcium (Lipitor) 10 mg PO HS [facility] Last Admin: 02/27/18 21:26 Dose: 10 mg Carvedilol (Coreg) 3.125 mg PO AC-BRKFST [facility] Last Admin: 02/27/18 08:29 Dose: 3.125 mg Al Hydroxide/Mg Hydroxide 30 ml/ Diphenhydramine HCl 75 mg/Lidocaine HCl 30 ml 0 ml PO TID [facility] Last Admin: 02/27/18 21:26 Dose: 5 ml Docusate Sodium (Colace) 100 mg PO BID [facility] Last Admin: 02/27/18 21:26 Dose: 100 mg Gabapentin (Neurontin) 300 mg PO TID [facility] Last Admin: 02/27/18 21:26 Dose: 300 mg Heparin Sodium (Porcine) (Heparin) 5,000 unit SQ Q12HR [facility] Last Admin: 02/27/18 21:27 Dose: 5,000 unit Sodium Chloride (Saline 0.9%) 1,000 mls @ 75 mls/hr IV .[id number] [facility] Last Admin: 02/27/18 12:58 Dose: 75 mls/hr Vancomycin HCl 1,500 mg/ (Sodium Chloride) 250 mls @ 125 mls/hr IVPB Q16H [facility] Last Admin: 02/27/18 21:27 Dose: 125 mls/hr Ibuprofen (Motrin) 800 mg PO Q8H PRN PRN Reason: MILD Pain Last Admin: 02/24/18 08:24 Dose: 800 mg Ipratropium [place] (Atrovent Nebulized) 0.5 mg INHALATION RT-QID [facility] Last Admin: 02/27/18 21:07 Dose: 0.5 mg Isosorbide Mononitrate (Imdur) 30 mg PO [facility] Last Admin: 02/27/18 21:26 Dose: 30 mg Magnesium Hydroxide (Milk Of Magnesia) 2,400 mg PO DAILY PRN PRN Reason: Constipation Morphine Sulfate (Morphine Sulfate (Inj)) 4 mg IV Q4HR PRN PRN Reason: Severe Pain Last Admin: 02/26/18 21:42 Dose: 4 mg Naloxone HCl (Narcan) 0.2 mg IV Q2M PRN PRN Reason: Opioid Reversal Nicotine (Habitrol 14mg/24hr Patch) 1 patch TRANSDERM DAILY [facility] Last Admin: 02/27/18 08:28 Dose: 1 patch Nitroglycerin (Nitrostat) 0.4 mg SUBLINGUAL Q5M PRN PRN Reason: Chest Pain Non-Formulary Medication (Mirtazapine [Remeron (Soluspan)]) 30 mg PO [facility] Last Admin: 02/27/18 21:15 Dose: Not Given Nystatin (Mycostatin Cream) 1 applic TOPICAL BID PRN PRN Reason: Skin Irritation Last Admin: 02/27/18 08:31 Dose: 1 applic Nystatin (Mycostatin Oral Susp) 500,000 unit PO QID [facility] Ondansetron HCl (Zofran) 4 mg IVP Q8HR PRN PRN Reason: Nausea And Vomiting Oxybutynin Chloride (Ditropan Xl) 10 mg PO BID [facility] Last Admin: 02/27/18 21:26 Dose: 10 mg Pantoprazole Sodium (Protonix) 40 mg PO AC-BRKFST [facility] Last Admin: 02/27/18 08:29 Dose: 40 mg Temazepam (Restoril) 15 mg PO HS PRN PRN Reason: Insomnia Objective - Vital Signs Vital signs: Vital Signs Temp 98.5 F 02/28/18 15:00 Pulse 72 02/28/18 16:58 Resp 18 02/28/18 15:00 BP 115/55 02/28/18 15:00 Pulse Ox 95 02/28/18 15:00 Intake & Output 02/28/18 02/28/18 03/01/18 06:59 18:59 06:59 Intake Total 340 1290 Output Total 225 Balance 115 1290 Weight 90.7 kg Intake: Intake, IV Titration 1050 Amount Sodium Chloride 0.9% 1, 800 000 ml @ 75 mls/hr IV . [id number] [facility] Rx#:[id number] Vancomycin 1,500 mg In 250 Sodium Chloride 0.9% 250 ml @ 125 mls/hr IVPB Q16H [facility] Rx#:[id number] Oral 340 240 Output: Urine 225 Other: Voiding Method Toilet # Voids 1 - Exam GEN. APPEARANCE: alert, in no apparent distress HEAD EXAM: atraumatic, normocephalic, normal inspection EYE EXAM: normal appearance, PERRL, EOMI. Absent: scleral icterus, conjunctival injection, periorbital swelling ENT EXAM: normal exam, mucous membranes moist NECK EXAM: normal inspection. Absent: tenderness, meningismus, full ROM, lymphadenopathy RESPIRATORY EXAM: Normal bilateral breath sounds. No wheezes or crackles. CARDIOVASCULAR EXAM: S1 and S2 heard. No additional sounds. GI/ABDOMINAL EXAM: soft, normal bowel sounds. Absent: distended, tenderness, guarding, rebound, rigid EXTREMITIES EXAM: Left big toe -status post amputation. Dressing in place with mild discharge. NEUROLOGICAL EXAM: alert, oriented X3, no focal neurological deficits - Labs CBC & Chem 7: 02/28/18 09:19 02/28/18 09:19 Labs: Abnormal Lab Results - Last 24 Hours (Table) 02/28/18 02/28/18 Range/Units 09:19 09:19 RBC 3.05 L (4.30-5.90) m/uL Hgb 10.1 L (13.0-17.5) gm/dL Hct 31.9 L (39.0-53.0) % MCV 104.7 H (80.0-100.0) fL RDW 17.2 H (11.5-15.5) % Plt Count 475 H (150-450) k/uL Neutrophils # 7.8 H (1.3-7.7) k/uL Chloride 108 H (98-107) mmol/L Glucose 149 H (74-99) mg/dL Microbiology - Last 24 Hours (Table) 02/26/18 13:55 Blood Culture - Preliminary Blood No Growth after 48 hours 02/24/18 15:18 Anaerobic Culture - Preliminary Toe - Left First 02/24/18 15:18 Gram Stain - Final Toe - Left First Wound Culture - Final Methicillin resist S. aureus Enterococcus faecalis Gram Neg Bacilli Assessment and Plan Assessment: ASSESSMENT Left big toe MRSA, E. coli and gram-negative bacilli osteomyelitis Acute on chronic kidney injury. Resolved Chronic kidney injury stage III COPD CVA Hypertension Hyperlipidemia History of coronary artery disease History of mitral wall prolapse History of spinal stenosis History of MRSA History of carotid endarterectomy Plan: Continue with vancomycin - renally dosed. Wound culture showing MRSA, Enterococcus fecalis and Candid albicans . Patient had left big toe amputation done by vascular surgery on 02/24/18 . Continue with the rest of his current medication regimen. Cools solution ordered for mouth ulcers. Further recommendations based on the clinical course.
--- NOTE | 2018-03-01 15:48 | P.DS ---
Providers Date of admission: 02/22/18 16:32 Expected date of discharge: 03/01/18 Attending physician: Boris Muse Consults: 02/22/18 18:27 Consult Physician Urgent Consulting Provider: Eduardo Sadler Consult Reason/Comments: osteomyelitis worsening to left great toe Do you want consulting provider notified?: Yes 02/22/18 23:59 Consult Physician Routine Consulting Provider: Soledad Mac Consult Reason/Comments: cellulitis, great toe, Do you want consulting provider notified?: Yes, Notify in am 02/23/18 00:57 Consult Physician Routine Consulting Provider: Oziel Costa Consult Reason/Comments: cad Do you want consulting provider notified?: Yes Primary care physician: Bhupinder Blankenship [facility] Course: Discharge diagnosis Left big toe MRSA, E. coli and gram-negative bacilli osteomyelitis Acute on chronic kidney injury. Resolved Chronic kidney injury stage III COPD CVA Hypertension Hyperlipidemia History of coronary artery disease History of mitral wall prolapse History of spinal stenosis History of MRSA History of carotid endarterectomy Hospital course Mr. 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 Patient was started on clindamycin but did not show significant improvement so admitted for further management. Wound cultures were obtained and patient has been started on vancomycin. Patient had a left big toe amputation by vascular surgery on 02/24/18. On 02/27/18 - Today the patient is comfortably lying in bed appears to be no acute distress. Pt complained on oral sores at the corners of his lips. 02/28/2018 Patient denied any new complaints today. Mouth sores are better. Being continued on vancomycin and ID recommends to continue with antibiotics as an outpatient to complete the course. PICC line tomorrow. 03/01/2018 Patient denied any new complaints today. No fever no chills. Renal function is stable. Stable to be discharged home with IV antibiotics at home. Plan: Continue with vancomycin - renally dosed. Wound culture showing MRSA, Enterococcus fecalis and Candid albicans . Patient had left big toe amputation done by vascular surgery on 02/24/18 . Continue with the rest of his current medication regimen. Cools solution ordered for mouth ulcers. Patient did improve symptomatically. Agent had PICC line placed today. Continue with IV antibiotics in the form of vancomycin as per ID recommendations as an outpatient. Patient's daughter is a nurse and will be taking care of antibiotic infusion at home. Otherwise patient is medically stable to be discharged home. Discharge physical examination was done. Vital Signs 03/01/18 15:24 Respiratory 16 Rate Vital Signs - 8 hr 03/01/18 15:24 Respiratory 16 Rate Vital Signs - 24 hr 02/28/18 02/28/18 02/28/18 16:51 16:58 23:00 Temperature 98.3 F Pulse Rate 72 72 Pulse Rate [ 76 Pulse Oximetery ] Respiratory 18 Rate Blood Pressure 104/61 [Right Arm] O2 Sat by Pulse 93 L Oximetry 03/01/18 03/01/18 06:20 15:24 Temperature 98.2 F Pulse Rate Pulse Rate [ 72 Pulse Oximetery ] Respiratory 16 16 Rate Blood Pressure 126/70 [Right Arm] O2 Sat by Pulse 92 L Oximetry Patient Condition at Discharge: Good Plan - Discharge Summary Discharge Rx Participant: No New Discharge Prescriptions: New Vancomycin 1,250 mg IVPB Q12HR #84 bag Mag Hydrox/Al Hydrox/Simeth [Maalox] 30 ml PO TID PRN #1 bottle PRN Reason: Gi Upset Nystatin 100,000 Unit/ml Susp [Mycostatin Oral Susp] 500,000 unit PO QID 5 Days #1 bottle Continue Nitroglycerin Sl Tabs [Nitrostat] 0.4 mg SUBLINGUAL Q5M PRN PRN Reason: Chest Pain Gabapentin [Neurontin] 300 mg PO TID Isosorbide Mononitrate ER [Imdur] 30 mg PO DAILY Aspirin EC [Ecotrin Low Dose] 81 mg PO DAILY Clopidogrel [Plavix] 75 mg PO DAILY Carvedilol [Coreg] 3.125 mg PO BID Atorvastatin Calcium [Lipitor] 10 mg PO HS Tolterodine ER [Detrol LA] 4 mg PO BID Nystatin 100,000Unit/gm Cream [Mycostatin Cream] 1 applic TOPICAL BID PRN PRN Reason: Skin Irritation Umeclidinium Brm/Vilanterol Tr [Anoro Ellipta 62.5-25 Mcg INH] 1 puff INHALATION RT-DAILY Mirtazapine [Remeron (Soluspan)] 30 mg PO HS HYDROcodone/APAP 10-325MG [[place] 10-325] 1 tab PO TID PRN PRN Reason: Pain Discontinued Ibuprofen [Motrin] 800 mg PO Q8H PRN PRN Reason: Pain Sulfamethox-Tmp 800-160Mg [Bactrim DS 800-160 mg] 1 tab PO BID Discharge Medication List Aspirin EC [Ecotrin Low Dose] 81 mg PO DAILY 08/14/15 [History] Atorvastatin Calcium [Lipitor] 10 mg PO HS 08/14/15 [History] Carvedilol [Coreg] 3.125 mg PO BID 08/14/15 [History] Clopidogrel [Plavix] 75 mg PO DAILY 08/14/15 [History] Gabapentin [Neurontin] 300 mg PO TID 08/14/15 [History] Isosorbide Mononitrate ER [Imdur] 30 mg PO DAILY 08/14/15 [History] Nitroglycerin Sl Tabs [Nitrostat] 0.4 mg SUBLINGUAL Q5M PRN 08/14/15 [History] HYDROcodone/APAP 10-325MG [[place] 10-325] 1 tab PO TID PRN 02/22/18 [History] Mirtazapine [Remeron (Soluspan)] 30 mg PO HS 02/22/18 [History] Nystatin 100,000Unit/gm Cream [Mycostatin Cream] 1 applic TOPICAL BID PRN [History] Tolterodine ER [Detrol LA] 4 mg PO BID 02/22/18 [History] Umeclidinium Brm/Vilanterol Tr [Anoro Ellipta 62.5-25 Mcg INH] 1 puff INHALATION RT-DAILY 02/22/18 [History] Mag Hydrox/Al Hydrox/Simeth [Maalox] 30 ml PO TID PRN #1 bottle 03/01/18 [Rx] Nystatin 100,000 Unit/ml Susp [Mycostatin Oral Susp] 500,000 unit PO QID 5 Days #1 bottle 03/01/18 [Rx] Vancomycin 1,250 mg IVPB Q12HR #84 bag 03/01/18 [Rx] Follow up Appointment(s)/Referral(s): Bhupinder Blankenship DO [Primary Care Provider] - [facility] - As Needed [facility], [REFERRING] - As Needed Eduardo Sadler MD [STAFF PHYSICIAN] - 03/05/18 10:45 am Soledad Mac MD [STAFF PHYSICIAN] - 1 Week Ambulatory/Diagnostic Orders: Basic Metabolic Panel [LAB.AMB] Location: None Selected Complete Blood Count w/diff [LAB.AMB] Location: None Selected C Reactive Protein [LAB.AMB] Location: None Selected Erythrocyte Sedimentation Rate [LAB.AMB] Location: None Selected Patient Instructions/Handouts: Toe Amputation (DC) Activity/Diet/Wound Care/Special Instructions: Dry dressing, change as needed. Dr. Sadler will remove sutures Monday at appt. Cardiac diet as tolerated. Activity as tolerated. WB as tolerated. Elevate at rest. NO smoking, cessation infomation provided. Discharge Disposition: HOME WITH HOME HEALTH SERVICES
--- NOTE | 2018-03-01 16:06 | IR ---
PICC LINE PLACEMENT: HISTORY: Infection requiring long-term antibiotic therapy PROCEDURE: Ultrasound and fluoroscopic guidance of PICC line placement. COMPLICATIONS: None ANESTHESIA: 1. 1% Lidocaine locally. FINDINGS/TECHNIQUE: The procedure was explained to the patient. The risks, complications, benefits and alternatives were discussed and any questions were answered. Informed consent was obtained. The patient was placed supine on the fluoroscopic table and prepped and draped in the usual sterile fash ion. Utilizing a 21 gauge needle and sonographic and fluoroscopic guidance, access in the left basi lic vein was achieved and there is placement of a 0.018 guidewire. The vein is patent. A 4-F sheath was placed over the guidewire. The guidewire and dilator were removed and a 4-F. PICC line was plac ed through the sheath with the tip at the level of the SVC. The sheath was removed, the catheter was flushed and sutured into position. The patient was stable throughout the procedure and remained sta ble upon discharge from the Department of Radiology. The vein puncture was patent under ultrasound. A fleming scale image was obtained to document patency of the vein punctured. All elements of the maximal barrier technique were utilized. FLUOROSCOPY TIME: 0.1 minutes, one image submitted IMPRESSION: Successful PICC line placement under ultrasound and fluoroscopic guidance.
--- NOTE | 2018-03-01 19:12 | PN ---
PROGRESS NOTE DATE OF SERVICE: 03/01/2018. 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 INTERVAL HISTORY: The patient is seen on rounds early this afternoon. The patient just came back from the PICC line. The patient denies any chest pain, shortness of breath, cough, no abdominal pain, or any worsening pain to the foot area. EXAMINATION: Blood pressure 126/70 with a pulse of 72, temperature 98.2. He is 92% on room air. General description is an elderly male lying in bed in no distress. Respiratory system: Unlabored breathing, clear to auscultation anteriorly. Heart S1, S2. Regular rate and rhythm. Abdomen is soft, no tenderness. Left foot big toe amputation site looks clean with no swelling/redness or any drainage. LABS: His sedimentation rate was 83, CRP is 26.5. Blood cultures repeat 02/26 has been negative. 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 In view of extensive infection and bacteremia, patient advised PICC line IV Vancomycin in the outpatient setting for at least 4 weeks with close outpatient followup with weekly monitoring of CBC and BMP and sed rate. His care was discussed in detail with his daughter who is an RN and the explaining of helping her father during IV infusion at home. All her questions and concerns were answered. MMODL / IJN: [id number] /
== END 2018-03-01 16:23 | disposition home health service (06) | DRG 504 ==
LOC: EC 14:58 → 4MS4W 16:32
PROVIDERS: ADMIT Hospitalist; ATTEND Hospitalist
PROC: 0Y6Q0Z0 Detachment at Left 1st Toe, Complete, Open Approach (ICD-10-PCS; principal; 2018-02-25)
PROC: 02HV33Z Insertion of Infusion Device into Superior Vena Cava, Percutaneous Approach (ICD-10-PCS; 2018-03-01 13:00)
DX: M86.172 Other acute osteomyelitis, left ankle and foot (principal); R78.81 Bacteremia; I96 Gangrene, not elsewhere classified; N17.9 Acute kidney failure, unspecified; B37.0 Candidal stomatitis; B95.62 Methicillin resistant Staphylococcus aureus infection as the cause of diseases classified elsewhere; B96.89 Other specified bacterial agents as the cause of diseases classified elsewhere; D64.9 Anemia, unspecified; E78.5 Hyperlipidemia, unspecified; F17.200 Nicotine dependence, unspecified, uncomplicated; F41.9 Anxiety disorder, unspecified; G47.00 Insomnia, unspecified; I12.9 Hypertensive chronic kidney disease with stage 1 through stage 4 chronic kidney disease, or unspecified chronic kidney disease; I25.10 Atherosclerotic heart disease of native coronary artery without angina pectoris; I25.2 Old myocardial infarction; I34.1 Nonrheumatic mitral (valve) prolapse; J44.9 Chronic obstructive pulmonary disease, unspecified; K59.00 Constipation, unspecified; L60.0 Ingrowing nail; N18.3 Chronic kidney disease, stage 3 (moderate); Z79.02 Long term (current) use of antithrombotics/antiplatelets; Z79.2 Long term (current) use of antibiotics; Z79.82 Long term (current) use of aspirin; Z79.899 Other long term (current) drug therapy; Z86.14 Personal history of Methicillin resistant Staphylococcus aureus infection; Z86.73 Personal history of transient ischemic attack (TIA), and cerebral infarction without residual deficits; Z95.1 Presence of aortocoronary bypass graft; Z95.5 Presence of coronary angioplasty implant and graft; Z79.1 Long term (current) use of non-steroidal anti-inflammatories (NSAID); Z88.0 Allergy status to penicillin; Z91.018 Allergy to other foods
CPT/HCPCS: 36415; 36569; 76937; 77001; 80048; 80053; 80202; 81003; 83605; 85025; 85610; 85652; 85730; 86140; 87040; 87070; 87075; 87077; 87186; 87205; 88305; 88311; 93005; 93306; 94640; 96360; 99284

== ENCOUNTER → 2018-09-28 | Day surgery (SDC) | payer MEDICARE, BC ==
[2018-09-27 08:44] VITALS: BMI 22.4
[~2018-09-28] MED LIST: LIDOCAINE 1% INJ 10MG/ML (20 ML MDV) ONE; VANCOMYCIN 1,500 MG in SODIUM CHLORIDE 0.9% 250 ML IVPB ONE
[2018-09-28 11:33] LABS: Anisocytosis Slight; Basophils # (A) 0.1 k/uL (0-0.2); Basophils % (A) 1 %; Eosinophils # (A) 0.4 k/uL (0-0.7); Eosinophils % (A) 5 %; HCT 35.4 % (39.0-53.0); HGB 11.4 gm/dL (13.0-17.5); Lymphocytes % (A) 12 %; MCH 32.7 pg (25.0-35.0); MCHC 32.2 g/dL (31.0-37.0); MCV 101.7 fL (80.0-100.0); Macrocytosis Moderate; Mean Platelet Volume 7.9; Monocytes # (A) 0.5 k/uL (0-1.0); Monocytes % (A) 6 %; Neutrophils # (A) 6.1 k/uL (1.3-7.7); Neutrophils % (A) 73 %; Platelet Count 436 k/uL (150-450); RBC 3.48 m/uL (4.30-5.90); RDW 17.9 % (11.5-15.5); WBC 8.4 k/uL (3.8-10.6)
[2018-09-28 12:31] VITALS: BP 130/71; PULSE 83; RESP 18; TEMP 98
--- NOTE | 2018-09-28 13:36 | IR ---
PICC LINE PLACEMENT: HISTORY: Infection requiring long-term antibiotic therapy PROCEDURE: Ultrasound and fluoroscopic guidance of PICC line placement. COMPLICATIONS: None ANESTHESIA: 1. 1% Lidocaine locally. FINDINGS/TECHNIQUE: The procedure was explained to the patient. The risks, complications, benefits and alternatives were discussed and any questions were answered. Informed consent was obtained. The patient was placed supine on the fluoroscopic table and prepped and draped in the usual sterile fash ion. Utilizing a 21 gauge needle and sonographic and fluoroscopic guidance, access in the right bas ilic vein was achieved and there is placement of a 0.018 guidewire. The vein is patent. A 4-F sheat h was placed over the guidewire. The guidewire and dilator were removed and a 4-F. PICC line was victorino mamie through the sheath with the tip at the level of the SVC. The sheath was removed, the catheter wa s flushed and sutured into position. The patient was stable throughout the procedure and remained st able upon discharge from the Department of Radiology. The vein puncture was patent under ultrasound. A fleming scale image was obtained to document patency of the vein punctured. All elements of the maximal barrier technique were utilized. FLUOROSCOPY TIME: 0.2 minutes and one image submitted IMPRESSION: Successful PICC line placement under ultrasound and fluoroscopic guidance.
== END | disposition home or self-care (01) ==
LOC: CATHCVL 10:56
PROVIDERS: ATTEND Radiology Diagnostic Radiology
DX: T87.44 Infection of amputation stump, left lower extremity (principal); Y83.5 Amputation of limb(s) as the cause of abnormal reaction of the patient, or of later complication, without mention of misadventure at the time of the procedure; Z88.0 Allergy status to penicillin; Z91.018 Allergy to other foods; Z84.1 Family history of disorders of kidney and ureter; Z82.3 Family history of stroke; F17.200 Nicotine dependence, unspecified, uncomplicated; Z79.2 Long term (current) use of antibiotics
CPT/HCPCS: 36573; 80051; 82565; 84520; 85025; C1751; C1769; J3370